=== PATIENT | male | born 1935 | race Caucasian/White ===

== ENCOUNTER 2021-11-18 23:56 | Inpatient (IN) | payer MEDICARE, SELFPAY ==
--- NOTE | ~2021-11-18 | XR_ITS ---
EXAMINATION: XR HIP, RIGHT CLINICAL INFORMATION: Fall COMPARISON: None TECHNIQUE: Two views of the right hip. Frontal view of the pelvis. FINDINGS: Osteopenia. Catheter in place over the pelvis. Vascular calcifications. No fracture or dislocation. The hips are appropriately aligned. Mild degenerative changes with subchondral sclerosis. The pelvic rim is intact. The sacroiliac joints and pubic symphysis are intact. Normal bowel gas pattern. XR/XR hip RT min 2V IMPRESSION: No acute fracture or malalignment. Mild degenerative changes of the hips.
--- NOTE | ~2021-11-18 | XR_ITS ---
EXAMINATION: XR FOOT, RIGHT CLINICAL INFORMATION: Foot wound COMPARISON: None TECHNIQUE: AP and lateral views of the right foot. FINDINGS: Osteopenia. No fracture or dislocation. Appropriate alignment. Diffuse soft tissue swelling. No osseous erosions are seen. XR/XR foot RT min 3V IMPRESSION: Diffuse soft tissue swelling without acute osseous abnormality. Osteopenia.
--- NOTE | ~2021-11-18 | CT_ITS ---
EXAMINATION: NONCONTRAST HEAD CT NONCONTRAST CERVICAL SPINE CT INDICATION INFORMATION: Fall. On Eliquis. COMPARISON: None TECHNIQUE: Separate noncontrast CT examinations of the head and cervical spine were performed. Coronal and sagittal images were created for each examination at the technologist workstation. This CT examination was performed using dose optimization techniques as appropriate, variously including the following: *Automated exposure control *Adjustment of mA and/or kV according to patient size (this includes techniques or standardized protocols for targeted exams where dose is matched to indication/reason for exam; i.e. extremities or head) *Use of iterative reconstruction technique DLP: 2300 mGy-cm FINDINGS: Motion limited evaluation. Head: There is no evidence of acute intracranial hemorrhage or territorial infarction. No abnormal mass effect or midline shift is seen. Lindsey to white matter differentiation is well preserved. No extra-axial fluid collections are identified. No hydrocephalus. Proportional prominence of the ventricles and sulcal spaces is consistent with moderate volume loss. Patchy periventricular and deep white matter hypoattenuation is consistent with moderate small vessel ischemic changes. No acute osseous or soft tissue abnormality. The mastoid air cells and visualized portions of the paranasal sinuses are well aerated. Cervical spine: There is anatomic alignment of the vertebral bodies and posterior elements. The atlantoaxial and atlantooccipital articulations are intact. Vertebral body heights are maintained. There is multilevel intervertebral disc space narrowing with endplate osteophyte formation and facet arthropathy. No evidence of acute fracture. No prevertebral soft tissue swelling. Visualized portions of the lung apices are unremarkable. The thyroid gland is unremarkable. CT/CT cervical spine wo con IMPRESSION: Motion limited study. 1. No acute intracranial finding. 2. No fracture or malalignment of the cervical spine. Moderate degenerative change.
--- NOTE | ~2021-11-18 | CT_ITS ---
EXAMINATION: CT CHEST WITHOUT CONTRAST CLINICAL INFORMATION: Fall COMPARISON: None TECHNIQUE: Multidetector volumetric CT imaging of the chest was done. Axial MIP volume rendering provided. Sagittal and coronal reformatted images were obtained. This CT examination was performed using dose optimization techniques as appropriate, variously including the following: *Automated exposure control *Adjustment of mA and/or kV according to patient size (this includes techniques or standardized protocols for targeted exams where dose is matched to indication/reason for exam; i.e. extremities or head) *Use of iterative reconstruction technique DLP: 516 mGy-cm FINDINGS: LUNGS: Central airways are patent. Dependent atelectasis bilaterally. Mild peripheral reticulation. No pneumothorax. MEDIASTINUM: Enlarged heart with coronary artery calcifications. Left chest wall pacer in place. No pericardial effusion. There is a prominent prevascular lymph node measuring 1.4 cm short axis. No additional lymphadenopathy. PLEURA: There is no pleural effusion. No pleural mass or thickening. AXILLA: No lymphadenopathy. UPPER ABDOMEN: Unremarkable. OSSEOUS STRUCTURES: No acute or suspicious osseous abnormality. Degenerative change throughout the spine. DISH. No rib fracture identified. The sternum is intact. CT/CT chest wo con IMPRESSION: No acute traumatic findings. No acute fractures are seen. Prominent heart. Dependent atelectasis. Peripheral reticulation could be chronic or associated with mild edema. Fleischner guidelines were followed.
[2021-11-19] VITALS (10 sets, daily range): BP systolic 100–180; BP diastolic 41–90; PULSE 60–97; RESP 12–24; TEMP 36.2–37; O2SAT 89–100; BMI 30.9
--- NOTE | 2021-11-19 00:15 | ECG_ITS ---
Test Reason : FALL Blood Pressure : / mmHG Vent. Rate : 086 BPM Atrial Rate : 086 BPM P-R Int : 176 ms QRS Dur : 162 ms QT Int : 472 ms P-R-T Axes : 072 -67 110 degrees QTc Int : 564 ms Atrial-sensed ventricular-paced rhythm with Premature supraventricular complexes Abnormal ECG No previous ECGs available Referred By: Tiara Adair Electronically Signed By:DELONTE BERGMAN
--- NOTE | 2021-11-19 00:17 | ED_ITS ---
HPI - Fall General Chief Complaint: Fall Stated Complaint: fall Time Seen by Provider: 11/19/21 00:13 Source: patient and EMS Mode of arrival: EMS Limitations: altered mental status History of Present Illness HPI Narrative: 86 yo male from local SNF hx of anemia, chronic back pain, PE on eliquis also saw plavix on his med list, HLD, chronic vieira, anemia was found out of bed tonight unwitnessed fall - staff told EMS he seems more confused. Patient reports leg pain but other than that denies complaints. He also pulled his chronic vieira out. Patient is DNR/DNI. MD complaint: fall Onset (ago): unknown Fall from: out of bed Fall witnessed: no Place fall occurred: [facility] Loss of consciousness: unsure Prolonged down time: unclear Symptoms prior to fall: other (unknown patient does not remember) Context: other (found on floor by staff) Location of injury: pelvis (R hip) and other (pulled his vieira out) Location of injury - extremities: right: lower leg Severity: moderate Quality: dull Associated symptoms (after fall): other (vieira pulled out, confused, R leg pain) Related Data Allergies Allergy/AdvReac Type Severity Reaction Status Date / Time sulfamethoxazole Allergy Unknown Unknown Verified 11/19/21 00:14 [From Bactrim] trimethoprim [From Bactrim] Allergy Unknown Unknown Verified 11/19/21 00:14 Review of Systems Review of Systems: ROS unable to be obtained due to altered mental status PMFSH Past Medical History Medical History Anemia Chronic indwelling Vieira catheter Pulmonary embolus Wound of foot Social History Social History (Updated 11/19/21 @ 00:18 by Tiara Adair DO) Patient Tobacco Use Status: Tobacco use Unknown Advance Directives: No Advance Directives Information Provided: Yes Physical Exam Vital Signs: Vital Signs: Last Vital Signs Temp 98.6 F 11/19/21 00:03 Pulse 69 11/19/21 02:49 Resp 14 11/19/21 02:49 BP 105/41 L 11/19/21 02:49 Pulse Ox 97 11/19/21 02:49 O2 Del Method 11/19/21 02:49 O2 Flow Rate 2 11/19/21 02:49 Oxygen Flow Rate 2 11/19/21 00:03 BMI result Body Mass Index 30.9 Appearance: Alert. Oriented X to self . No acute distress. Eyes: Pupils equal, round and reactive to light. ENT: Pharynx normal. Atraumatic Neck: Normal inspection. Neck supple. CVS: Normal heart rate and rhythm. Pulses normal. Respiratory: No respiratory distress. Breath sounds normal. Abdomen: Soft and nontender. : dried blood at meatus Skin: Skin warm and dry. Normal skin color. Normal skin turgor. Extremities: trace lower extremity edema, reports pain to R hip and R foot, foul draining wound from R foot with significant odor noted on heel with sloughing of skin noted Neuro: Oriented X self. No motor deficit. No sensory deficit. Course Course Course Narrative: vieira placed CT scans negative MDM - Fall MDM Narrative Medical decision making narrative: 86 yo male from local SNF hx of anemia, chronic back pain, PE on eliquis also saw plavix on his med list, HLD, chronic vieira, anemia here with c/o being found on floor by SNF staff at this time will need CT head/cspine/chest for trauma along with xray of hip and foot. Labs, cultures, his R foot is draining with very strong odor and purulence coming from it, will start on empiric antibiotics. Likely admit. Patient is DNR/DNI. Lab Data Result diagrams: 11/19/21 00:52 11/19/21 00:52 Labs: Lab Results 11/19/21 11/19/21 11/19/21 Range/Units 00:18 00:51 00:52 WBC 2.0 L (4.8-10.8) X10*3/uL RBC 3.04 L (4.60-5.80) X10*6/uL Hgb 8.6 L (14.0-18.0) g/dl Hct 28.1 L (42.0-52.0) % MCV 92.4 (80.0-98.0) fL MCH 28.3 (27.0-33.0) pg MCHC 30.6 L (31.0-36.0) g/dl RDW 15.2 (11.0-16.0) % Plt Count 310 (160-400) X10*3/uL MPV 8.7 L (9.4-12.4) fL Immature Gran % (Auto) 2.0 H (0.0-0.4) % Neut % (Auto) 90.0 H (45-73) % Lymph % (Auto) 4.0 L (20-40) % Sullivan % (Auto) 1.0 L (2-11) % Eos % (Auto) 2.5 (0-4) % Baso % (Auto) 0.5 (0-2) % Lymph # (Auto) 0.1 L (1.2-4.9) X10*3/uL Sullivan # (Auto) 0.0 L (0.1-1.2) X10*3/uL Eos # (Auto) 0.1 (0.0-0.4) X10*3/uL Baso # (Auto) 0.0 (0.0-0.2) X10*3/uL Abs Immat Gran (auto) 0.04 H (0.00-0.03) X10*3/uL Absolute Neuts (auto) 1.8 L (2.0-8.3) x10*3/uL Absolute Nucleated RBC 0.200 H (0.0-0.012) X10*3/uL Nucleated RBC % (auto) 10.0 H (0.0-0.2) /100WBC Smear Tech's Comments VERIFIED ESR (0-15) MM/HR PT 13.1 (10.0-13.1) SEC INR 1.3 H (0.9-1.1) APTT 23.7 L (24.1-38.0) SEC VBG pH (7.32-7.43) VBG pCO2 mmHg VBG pO2 mmHg VBG HCO3 (22-26) mmol/L VBG O2 Saturation % VBG Base Excess mmol/L Sodium (135-145) mmol/L Potassium (3.3-5.1) mmol/L Chloride (96-108) mmol/L Carbon Dioxide (22-29) mmol/L Anion Gap (12-20) BUN (9-16) mg/dL Creatinine (0.5-1.4) mg/dL Estim Creat Clear Calc Estimated GFR POC Glucose 142 H (60-115) mg/dL Random Glucose (60-115) mg/dL Lactic Acid (0.5-2.0) mmol/L Calcium (8.4-10.2) mg/dL Magnesium (1.6-2.6) mg/dL Total Bilirubin (0.0-1.0) mg/dL Direct Bilirubin (0.0-0.5) mg/dL AST (5-37) U/L ALT (0-40) U/L Alkaline Phosphatase (39-117) U/L Ammonia (13-55) umol/L Total Creatine Kinase (38-174) U/L Troponin I High Sens (<3.5-35.0) ng/L C-Reactive Protein (< or = 0.50) mg/dL Total Protein (6.5-8.0) g/dL Albumin (3.5-5.0) g/dL Lipase (8-78) U/L COVID-19 (GARRETT) (Negative) COVID-19 Clin Com 11/19/21 11/19/21 11/19/21 Range/Units 00:52 00:52 00:52 WBC (4.8-10.8) X10*3/uL RBC (4.60-5.80) X10*6/uL Hgb (14.0-18.0) g/dl Hct (42.0-52.0) % MCV (80.0-98.0) fL MCH (27.0-33.0) pg MCHC (31.0-36.0) g/dl RDW (11.0-16.0) % Plt Count (160-400) X10*3/uL MPV (9.4-12.4) fL Immature Gran % (Auto) (0.0-0.4) % Neut % (Auto) (45-73) % Lymph % (Auto) (20-40) % Sullivan % (Auto) (2-11) % Eos % (Auto) (0-4) % Baso % (Auto) (0-2) % Lymph # (Auto) (1.2-4.9) X10*3/uL Sullivan # (Auto) (0.1-1.2) X10*3/uL Eos # (Auto) (0.0-0.4) X10*3/uL Baso # (Auto) (0.0-0.2) X10*3/uL Abs Immat Gran (auto) (0.00-0.03) X10*3/uL Absolute Neuts (auto) (2.0-8.3) x10*3/uL Absolute Nucleated RBC (0.0-0.012) X10*3/uL Nucleated RBC % (auto) (0.0-0.2) /100WBC Smear Tech's Comments ESR (0-15) MM/HR PT (10.0-13.1) SEC INR (0.9-1.1) APTT (24.1-38.0) SEC VBG pH (7.32-7.43) VBG pCO2 mmHg VBG pO2 mmHg VBG HCO3 (22-26) mmol/L VBG O2 Saturation % VBG Base Excess mmol/L Sodium 143 (135-145) mmol/L Potassium 3.9 (3.3-5.1) mmol/L Chloride 109 H (96-108) mmol/L Carbon Dioxide 23 (22-29) mmol/L Anion Gap 15 (12-20) BUN 26 H (9-16) mg/dL Creatinine 1.43 H (0.5-1.4) mg/dL Estim Creat Clear Calc 50.1 Estimated GFR 47 POC Glucose (60-115) mg/dL Random Glucose 167 H (60-115) mg/dL Lactic Acid (0.5-2.0) mmol/L Calcium 8.6 (8.4-10.2) mg/dL Magnesium 2.4 (1.6-2.6) mg/dL Total Bilirubin 0.3 (0.0-1.0) mg/dL Direct Bilirubin 0.2 (0.0-0.5) mg/dL AST 5 (5-37) U/L ALT < 6 (0-40) U/L Alkaline Phosphatase 82 (39-117) U/L Ammonia 23 (13-55) umol/L Total Creatine Kinase 79 (38-174) U/L Troponin I High Sens (<3.5-35.0) ng/L C-Reactive Protein 1.74 H (< or = 0.50) mg/dL Total Protein 6.8 (6.5-8.0) g/dL Albumin 3.4 L (3.5-5.0) g/dL Lipase 12 (8-78) U/L COVID-19 (GARRETT) Negative (Negative) COVID-19 Clin Com See Note 11/19/21 11/19/21 11/19/21 Range/Units 00:52 00:52 00:52 WBC (4.8-10.8) X10*3/uL RBC (4.60-5.80) X10*6/uL Hgb (14.0-18.0) g/dl Hct (42.0-52.0) % MCV (80.0-98.0) fL MCH (27.0-33.0) pg MCHC (31.0-36.0) g/dl RDW (11.0-16.0) % Plt Count (160-400) X10*3/uL MPV (9.4-12.4) fL Immature Gran % (Auto) (0.0-0.4) % Neut % (Auto) (45-73) % Lymph % (Auto) (20-40) % Sullivan % (Auto) (2-11) % Eos % (Auto) (0-4) % Baso % (Auto) (0-2) % Lymph # (Auto) (1.2-4.9) X10*3/uL Sullivan # (Auto) (0.1-1.2) X10*3/uL Eos # (Auto) (0.0-0.4) X10*3/uL Baso # (Auto) (0.0-0.2) X10*3/uL Abs Immat Gran (auto) (0.00-0.03) X10*3/uL Absolute Neuts (auto) (2.0-8.3) x10*3/uL Absolute Nucleated RBC (0.0-0.012) X10*3/uL Nucleated RBC % (auto) (0.0-0.2) /100WBC Smear Tech's Comments ESR 67 H (0-15) MM/HR PT (10.0-13.1) SEC INR (0.9-1.1) APTT (24.1-38.0) SEC VBG pH (7.32-7.43) VBG pCO2 mmHg VBG pO2 mmHg VBG HCO3 (22-26) mmol/L VBG O2 Saturation % VBG Base Excess mmol/L Sodium (135-145) mmol/L Potassium (3.3-5.1) mmol/L Chloride (96-108) mmol/L Carbon Dioxide (22-29) mmol/L Anion Gap (12-20) BUN (9-16) mg/dL Creatinine (0.5-1.4) mg/dL Estim Creat Clear Calc Estimated GFR POC Glucose (60-115) mg/dL Random Glucose (60-115) mg/dL Lactic Acid 1.8 (0.5-2.0) mmol/L Calcium (8.4-10.2) mg/dL Magnesium (1.6-2.6) mg/dL Total Bilirubin (0.0-1.0) mg/dL Direct Bilirubin (0.0-0.5) mg/dL AST (5-37) U/L ALT (0-40) U/L Alkaline Phosphatase (39-117) U/L Ammonia (13-55) umol/L Total Creatine Kinase (38-174) U/L Troponin I High Sens 67.7 H (<3.5-35.0) ng/L C-Reactive Protein (< or = 0.50) mg/dL Total Protein (6.5-8.0) g/dL Albumin (3.5-5.0) g/dL Lipase (8-78) U/L COVID-19 (GARRETT) (Negative) COVID-19 Clin Com 11/19/21 11/19/21 Range/Units 01:02 03:02 WBC (4.8-10.8) X10*3/uL RBC (4.60-5.80) X10*6/uL Hgb (14.0-18.0) g/dl Hct (42.0-52.0) % MCV (80.0-98.0) fL MCH (27.0-33.0) pg MCHC (31.0-36.0) g/dl RDW (11.0-16.0) % Plt Count (160-400) X10*3/uL MPV (9.4-12.4) fL Immature Gran % (Auto) (0.0-0.4) % Neut % (Auto) (45-73) % Lymph % (Auto) (20-40) % Sullivan % (Auto) (2-11) % Eos % (Auto) (0-4) % Baso % (Auto) (0-2) % Lymph # (Auto) (1.2-4.9) X10*3/uL Sullivan # (Auto) (0.1-1.2) X10*3/uL Eos # (Auto) (0.0-0.4) X10*3/uL Baso # (Auto) (0.0-0.2) X10*3/uL Abs Immat Gran (auto) (0.00-0.03) X10*3/uL Absolute Neuts (auto) (2.0-8.3) x10*3/uL Absolute Nucleated RBC (0.0-0.012) X10*3/uL Nucleated RBC % (auto) (0.0-0.2) /100WBC Smear Tech's Comments ESR (0-15) MM/HR PT (10.0-13.1) SEC INR (0.9-1.1) APTT (24.1-38.0) SEC VBG pH 7.40 (7.32-7.43) VBG pCO2 38 mmHg VBG pO2 53 mmHg VBG HCO3 24 (22-26) mmol/L VBG O2 Saturation 81.0 % VBG Base Excess 0.1 mmol/L Sodium (135-145) mmol/L Potassium (3.3-5.1) mmol/L Chloride (96-108) mmol/L Carbon Dioxide (22-29) mmol/L Anion Gap (12-20) BUN (9-16) mg/dL Creatinine (0.5-1.4) mg/dL Estim Creat Clear Calc Estimated GFR POC Glucose (60-115) mg/dL Random Glucose (60-115) mg/dL Lactic Acid (0.5-2.0) mmol/L Calcium (8.4-10.2) mg/dL Magnesium (1.6-2.6) mg/dL Total Bilirubin (0.0-1.0) mg/dL Direct Bilirubin (0.0-0.5) mg/dL AST (5-37) U/L ALT (0-40) U/L Alkaline Phosphatase (39-117) U/L Ammonia (13-55) umol/L Total Creatine Kinase (38-174) U/L Troponin I High Sens 70.0 H (<3.5-35.0) ng/L C-Reactive Protein (< or = 0.50) mg/dL Total Protein (6.5-8.0) g/dL Albumin (3.5-5.0) g/dL Lipase (8-78) U/L COVID-19 (GARRETT) (Negative) COVID-19 Clin Com ECG Data Attestation: I personally reviewed and interpreted this ECG as follows: ECG interpretation date: 11/19/21 ECG interpretation time: 01:00 Interpretation: Rate: 86 Rhythm: continuous paced [place]: left wide QRS ST T wave : no CLARISSA qTC: prolonged prior studies: no priors, paced rhythm The study has been interpreted contemporaneously by me. . Discharge Plan Discharge Clinical Impression: Pancytopenia, Elevated troponin Fall Qualifiers: Encounter type: initial encounter Qualified Code(s): W19.XXXA - Unspecified fall, initial encounter Open wnd foot-complicated Qualifiers: Encounter type: initial encounter Laterality: right Qualified Code(s): S91.301A - Unspecified open wound, right foot, initial encounter Patient Disposition: Admitted As Inpatient
[2021-11-19 00:40] LABS: Glucose, Whole Blood 142 mg/dL (60-115)
[2021-11-19] MEDS: Acetaminophen 325 MG TABLET 650 MG PO (00:57)
[2021-11-19] MEDS: Piperacillin Sodium/Tazobactam 3.375 GM in 0.9 % Sodium Chloride 50 ML IV (00:57)
[2021-11-19] MEDS: Lidocaine HCl 2 % Urojet 10 ML JEL.PF.APP TOPICAL (00:58)
[2021-11-19 01:03] LABS: Basophils Percent Auto 0.5 % (0-2); Eosinophils Absolute Auto 0.1 X10*3/uL (0.0-0.4); Eosinophils Percent Auto 2.5 % (0-4); Hematocrit 28.1 % (42.0-52.0); Hemoglobin 8.6 g/dl (14.0-18.0); Imm Gran Abs Auto 0.04 X10*3/uL (0.00-0.03); Lymphocytes Absolute Auto 0.1 X10*3/uL (1.2-4.9); MANUAL DIFF FLAG SCAN; Mean Corpuscular HGB Conc 30.6 g/dl (31.0-36.0); Mean Corpuscular Hemoglobin 28.3 pg (27.0-33.0); Mean Corpuscular Volume 92.4 fL (80.0-98.0); Mean Platelet Volume 8.7 fL (9.4-12.4); Neutrophils Absolute Auto 1.8 x10*3/uL (2.0-8.3); Platelet Count 310 X10*3/uL (160-400); Red Blood Count 3.04 X10*6/uL (4.60-5.80); Red Cell Distribution Width 15.2 % (11.0-16.0); SCAN SMEAR FLAG 1
[2021-11-19 01:08] LABS: Venous Blood Gas Refer to POC result
[2021-11-19 01:10] LABS: VBG Base Excess 0.1 mmol/L; VBG HCO3 24 mmol/L (22-26); VBG pCO2 38 mmHg; VBG pO2 53 mmHg
[2021-11-19 01:11] LABS: Ammonia 23 umol/L (13-55)
[2021-11-19 01:15] LABS: Lactic Acid 1.8 mmol/L (0.5-2.0)
[2021-11-19 01:18] LABS: COVID-19 Test Negative (Negative)
[2021-11-19 01:20] LABS: Alanine Aminotransferase < 6 U/L (0-40); Albumin Level 3.4 g/dL (3.5-5.0); Alkaline Phosphatase 82 U/L (39-117); Anion Gap 15 (12-20); Aspartate Amino Transferase 5 U/L (5-37); Bilirubin Direct 0.2 mg/dL (0.0-0.5); Bilirubin Total 0.3 mg/dL (0.0-1.0); Blood Urea Nitrogen 26 mg/dL (9-16); C Reactive Protein 1.74 mg/dL (< or = 0.50); Calcium 8.6 mg/dL (8.4-10.2); Carbon Dioxide 23 mmol/L (22-29); Chloride 109 mmol/L (96-108); Creatinine Clr Calc Pharmacy 50.1; Estimated Glomerular Filt Rate 47; Glucose Random 167 mg/dL (60-115); Lipase 12 U/L (8-78); Magnesium 2.4 mg/dL (1.6-2.6); Potassium 3.9 mmol/L (3.3-5.1); Sodium 143 mmol/L (135-145); Total Protein 6.8 g/dL (6.5-8.0)
[2021-11-19 01:22] LABS: Troponin-I High Sensitivity 67.7 ng/L (<3.5-35.0)
[2021-11-19 01:53] LABS: SLIDE REVIEW VERIFIED
[2021-11-19 02:03] LABS: INTERNATIONAL NORM RATIO 1.3 (0.9-1.1); Partial Thromboplastin Time 23.7 SEC (24.1-38.0); Prothrombin Time 13.1 SEC (10.0-13.1)
[2021-11-19 02:20] LABS: Erythrocyte Sedimentation Rate 67 MM/HR (0-15)
--- NOTE | 2021-11-19 07:09 | PC.NURSE ---
RN gave report to Navdeep SHABAZZ and Malena SHABAZZ
--- NOTE | 2021-11-19 07:09 | PC.NURSE ---
Report received at 0700 from Dave, RNs
--- NOTE | 2021-11-19 09:47 | PC.NURSE ---
Pt. Merino catheter inserted by previous shift
--- NOTE | 2021-11-19 10:35 | PM.IMHP ---
History of Present Illness Date of Service: 11/19/21 Chief Complaint: AMS, hematuria, fall, open wound an 86 years old male with PMH of PE, chronic Merino, anemia among others who presents to the hospital after being found on the floor by SNF staff. The patient could not provide any meaningful history at time of presentation as his mentation was altered and very difficult to arouse. History was taken from emergency physician who reported that he was told by EMS staff the patient was confused mainly complaining of leg pain And he pulled his Merino out. in the emergency x-ray of the lower extremity was negative for any acute fracture. Brain image negative for any acute insults. He was found to have a right lower extremity ankle open wound with foul smell And purulent C. Admitted for further evaluation and treatment. Review of Systems Review of Systems: Yes Unobtainable due to mental status [facility] Medical History Anemia Chronic indwelling Merino catheter Pulmonary embolus Wound of foot Social History Patient Tobacco Use Status: Tobacco use Unknown Advance Directives: No Advance Directives Information Provided: Yes Meds Allergies Allergy/AdvReac Type Severity Reaction Status Date / Time sulfamethoxazole Allergy Unknown Unknown Verified 11/19/21 00:14 [From Bactrim] trimethoprim [From Bactrim] Allergy Unknown Unknown Verified 11/19/21 00:14 Active Medications: Current Medications Pharmacy Consult (Consult Rx Perform Med Rec) 1 each MISCELLANE ONCE PRN PRN Reason: Consult order Home Medications Medication Instructions Recorded Confirmed Last Taken Type acetaminophen 325 mg tablet 650 mg PO Q4H PRN Pain (Scale 11/19/21 11/19/21 Unknown History Score 1-3) apixaban 2.5 mg tablet 2.5 mg PO BID 11/19/21 11/19/21 Unknown History ascorbic acid (vitamin C) 500 mg 500 mg PO TID 11/19/21 11/19/21 Unknown History tablet aspirin 81 mg tablet,delayed 81 mg PO DAILY 11/19/21 11/19/21 Unknown History release bicalutamide 50 mg tablet 50 mg PO DAILY 11/19/21 11/19/21 Unknown History carbamazepine 200 mg tablet 200 mg PO BID 11/19/21 11/19/21 Unknown History carbidopa ER 25 mg-levodopa 100 mg 1 tab PO TID 11/19/21 11/19/21 Unknown History tablet,extended release carvedilol 6.25 mg tablet 6.25 mg PO BID 11/19/21 11/19/21 Unknown History cholecalciferol (vitamin D3) 125 125 mcg PO DAILY 11/19/21 11/19/21 Unknown History mcg (5,000 unit) tablet clonidine HCl 0.1 mg tablet 0.1 mg PO BID 11/19/21 11/19/21 Unknown History clopidogrel 75 mg tablet 75 mg PO DAILY 11/19/21 11/19/21 Unknown History cyanocobalamin (vitamin B-12) 1,000 mcg PO DAILY 11/19/21 11/19/21 Unknown History 1,000 mcg tablet docusate sodium 100 mg tablet 100 mg PO BID 11/19/21 11/19/21 Unknown History donepezil 10 mg tablet 10 mg PO BEDTIME 11/19/21 11/19/21 Unknown History doxycycline hyclate 100 mg tablet 100 mg PO BID 11/19/21 11/19/21 Unknown History ferrous sulfate 325 mg (65 mg 325 mg PO TID 11/19/21 11/19/21 Unknown History iron) tablet gabapentin 300 mg capsule 300 mg PO TID 11/19/21 11/19/21 Unknown History magnesium hydroxide 400 mg/5 mL 30 ml PO BEDTIME PRN Constipation 11/19/21 11/19/21 Unknown History oral suspension (Milk of Magnesia) methenamine hippurate 1 gram tablet 1 g PO BID 11/19/21 11/19/21 Unknown History omeprazole 20 mg tablet,delayed 20 mg PO DAILY@0630 11/19/21 11/19/21 Unknown History release paroxetine HCl 40 mg tablet 40 mg PO DAILY 11/19/21 11/19/21 Unknown History polyethylene glycol 3350 17 gram 17 g PO BID PRN Constipation 11/19/21 11/19/21 Unknown History oral powder packet (Miralax) polyethylene glycol 3350 17 gram 17 g PO DAILY 11/19/21 11/19/21 Unknown History oral powder packet (Miralax) rosuvastatin 10 mg tablet 10 mg PO DAILY 11/19/21 11/19/21 Unknown History Physical Exam Vital Signs and Narrative: Vital Signs: Last Vital Signs Temp 97.8 F 11/19/21 08:00 Pulse 61 11/19/21 10:00 Resp 14 11/19/21 10:00 BP 101/51 L 11/19/21 10:00 Pulse Ox 100 11/19/21 10:00 O2 Del Method 11/19/21 10:00 O2 Flow Rate 2 11/19/21 10:00 Oxygen Flow Rate 2 11/19/21 00:03 BMI result Body Mass Index 30.9 Const: Other: Constitutional : altered mentation, difficult to arouse, not in distress Neck : Normal inspection, Supple Cardiovascular : RRR, no JVP, trace bilateral lower extremity edema Respiratory : fair bilateral air entry, no crackles, wheezes or rhonchi Gastrointestinal: soft, lax, Normal bowel sounds, Non tender Skin : Warm, Dry, follow old drainage wound on the right ankle with fall others and sloughing skin Likely pressure ulcer grade 2 Neurological : altered mentation, difficult to arouse, difficult to assess for any focal deficit at this stage but has reactive pupils GCS of 9-10 Results Labs CBC and Chem 7: 11/19/21 00:52 11/19/21 00:52 Labs: Laboratory Results - last 24 hr 11/19/21 11/19/21 11/19/21 00:18 00:51 00:52 MCV 92.4 MCH 28.3 MCHC 30.6 L RDW 15.2 Plt Count 310 MPV 8.7 L Immature Gran % (Auto) 2.0 H Neut % (Auto) 90.0 H Lymph % (Auto) 4.0 L Wright % (Auto) 1.0 L Eos % (Auto) 2.5 Baso % (Auto) 0.5 Lymph # (Auto) 0.1 L Wright # (Auto) 0.0 L Eos # (Auto) 0.1 Baso # (Auto) 0.0 Abs Immat Gran (auto) 0.04 H Absolute Neuts (auto) 1.8 L Absolute Nucleated RBC 0.200 H Nucleated RBC % (auto) 10.0 H Smear Tech's Comments VERIFIED ESR PT 13.1 INR 1.3 H APTT 23.7 L VBG pH VBG pCO2 VBG pO2 VBG HCO3 VBG O2 Saturation VBG Base Excess Anion Gap Estim Creat Clear Calc Estimated GFR POC Glucose 142 H Random Glucose Lactic Acid Calcium Magnesium Total Bilirubin Direct Bilirubin AST ALT Alkaline Phosphatase Ammonia Total Creatine Kinase Troponin I High Sens C-Reactive Protein Total Protein Albumin Lipase COVID-19 ([facility]) COVID-19 Clin Com 11/19/21 11/19/21 11/19/21 00:52 00:52 00:52 MCV MCH MCHC RDW Plt Count MPV Immature Gran % (Auto) Neut % (Auto) Lymph % (Auto) Wright % (Auto) Eos % (Auto) Baso % (Auto) Lymph # (Auto) Wright # (Auto) Eos # (Auto) Baso # (Auto) Abs Immat Gran (auto) Absolute Neuts (auto) Absolute Nucleated RBC Nucleated RBC % (auto) Smear Tech's Comments ESR PT INR APTT VBG pH VBG pCO2 VBG pO2 VBG HCO3 VBG O2 Saturation VBG Base Excess Anion Gap 15 Estim Creat Clear Calc 50.1 Estimated GFR 47 POC Glucose Random Glucose 167 H Lactic Acid Calcium 8.6 Magnesium 2.4 Total Bilirubin 0.3 Direct Bilirubin 0.2 AST 5 ALT < 6 Alkaline Phosphatase 82 Ammonia 23 Total Creatine Kinase 79 Troponin I High Sens C-Reactive Protein 1.74 H Total Protein 6.8 Albumin 3.4 L Lipase 12 COVID-19 ([facility]) Negative COVID-19 Clin Com See Note 11/19/21 11/19/21 11/19/21 00:52 00:52 00:52 MCV MCH MCHC RDW Plt Count MPV Immature Gran % (Auto) Neut % (Auto) Lymph % (Auto) Wright % (Auto) Eos % (Auto) Baso % (Auto) Lymph # (Auto) Wright # (Auto) Eos # (Auto) Baso # (Auto) Abs Immat Gran (auto) Absolute Neuts (auto) Absolute Nucleated RBC Nucleated RBC % (auto) Smear Tech's Comments ESR 67 H PT INR APTT VBG pH VBG pCO2 VBG pO2 VBG HCO3 VBG O2 Saturation VBG Base Excess Anion Gap Estim Creat Clear Calc Estimated GFR POC Glucose Random Glucose Lactic Acid 1.8 Calcium Magnesium Total Bilirubin Direct Bilirubin AST ALT Alkaline Phosphatase Ammonia Total Creatine Kinase Troponin I High Sens 67.7 H C-Reactive Protein Total Protein Albumin Lipase COVID-19 ([facility]) COVID-19 Clin Com 11/19/21 11/19/21 01:02 03:02 MCV MCH MCHC RDW Plt Count MPV Immature Gran % (Auto) Neut % (Auto) Lymph % (Auto) Wright % (Auto) Eos % (Auto) Baso % (Auto) Lymph # (Auto) Wright # (Auto) Eos # (Auto) Baso # (Auto) Abs Immat Gran (auto) Absolute Neuts (auto) Absolute Nucleated RBC Nucleated RBC % (auto) Smear Tech's Comments ESR PT INR APTT VBG pH 7.40 VBG pCO2 38 VBG pO2 53 VBG HCO3 24 VBG O2 Saturation 81.0 VBG Base Excess 0.1 Anion Gap Estim Creat Clear Calc Estimated GFR POC Glucose Random Glucose Lactic Acid Calcium Magnesium Total Bilirubin Direct Bilirubin AST ALT Alkaline Phosphatase Ammonia Total Creatine Kinase Troponin I High Sens 70.0 H C-Reactive Protein Total Protein Albumin Lipase COVID-19 ([facility]) COVID-19 Clin Com Imaging Radiologist's Impressions: Impressions Foot X-Ray 11/19/21 01:43 IMPRESSION: Diffuse soft tissue swelling without acute osseous abnormality. Osteopenia. Hip X-Ray 11/19/21 01:43 IMPRESSION: No acute fracture or malalignment. Mild degenerative changes of the hips. Cervical Spine CT 11/19/21 02:00 IMPRESSION: Motion limited study. 1. No acute intracranial finding. 2. No fracture or malalignment of the cervical spine. Moderate degenerative change. Head CT 11/19/21 02:00 IMPRESSION: Motion limited study. 1. No acute intracranial finding. 2. No fracture or malalignment of the cervical spine. Moderate degenerative change. Chest CT 11/19/21 02:01 IMPRESSION: No acute traumatic findings. No acute fractures are seen. Prominent heart. Dependent atelectasis. Peripheral reticulation could be chronic or associated with mild edema. Fleischner guidelines were followed. Assessment and Plan (1) Fall: Qualifiers: Encounter type: initial encounter Qualified Code(s): W19.XXXA - Unspecified fall, initial encounter Status: Acute (2) Pancytopenia: Status: Acute (3) Pressure ulcer of foot, stage 2: Status: Acute (4) Toxic metabolic encephalopathy: Status: Acute (5) Hematuria: Status: Acute Plan an 86 years old male with PMH of PE, chronic Merino, anemia among others who presents to the hospital after being found on the floor by SNF staff. toxic metabolic encephalopathy Seems to be secondary to infection, wound VS UTI Broad-spectrum antibiotics for now Recurrent reorientation Pressure ulcer stage II Partial-thickness loss Get surgical evaluation for any debridement needed XR did not show any evidence of osteomyelitis To treat with antibiotics Hematuria Traumatic after removing his chronic Merino catheter Keep Merino catheter in place for now Hold ASA, Plavix and Eliquis To use CBI if needed possible urinary tract infection, pending urine culture Leukopenia, anemia Unclear baseline Could be secondary to infection Will try to get old blood work and monitor CBC Parkinson continue home medications For rest of medical problems I am waiting papers from facility, will restart some of his DVT PPX SCDs The patient will need 2 overnight hospital stay for evaluation of altered mentation and treatment of infection to prevent possible decompensation in to sepsis. Quality Stroke Does the patient have a stroke diagnosis?: No VTE Prior VTE?: No VTE Risk Level:: Medical - moderate - high VTE Device Contraindication: Treatment Not Indicated VTE Drug Contraindication: N/A - Med Ordered
[2021-11-19 10:58] LABS: Appearance Urine TURBID; Color Urine BROWN; Glucose Urine UA NEG (NEG); Leukocyte Esterase Urine 2+ (NEG); Nitrite Urine POS (NEG); Specific Gravity - Urine >= 1.030 (1.005-1.025); UACC Culture Trigger YES; Urine Blood 3+ (NEG); Urine Ketones 5 MG/DL (NEG); Urine Protein 3+ MG/DL (NEG-TRACE)
[2021-11-19 11:08] LABS: Amorphous Sediment Urine 4+ /LPF; RBC Urine TNTC /HPF (0); WBC Urine TNTC /HPF (0-4)
--- NOTE | 2021-11-19 11:46 | HE.PHANOTE ---
Completed med rec using shelter med list
[2021-11-19] MEDS: Dextrose 5 % and 0.9 % NaCl 1,000 ML 100 ML IVCONT (12:17)
[2021-11-19] MEDS: ceFAZolin Sodium/Dextrose,Iso 2 GM/50 ML PIGGYBACK IV ×2 (12:18→19:07)
--- NOTE | 2021-11-19 12:24 | PC.NURSE ---
this nurse took report on the patient at 11am, vieira cath patient/draining-hematuria noted, air sampling and monitoring paced 60s, vss, ivf started first abx hung per order, pt lungs have rhonchi upper and diminished throughout, rt heel open to air, call mccarthy within reach, will continue to monitor.
--- NOTE | 2021-11-19 12:52 | PC.NURSE ---
tyra fan running per order
--- NOTE | 2021-11-19 14:01 | PC.NURSE ---
critical labs given to this nurse by ED Dr. Washington Cates was notified via tiger text. Pt currently on vanco and other abx.
[2021-11-19] MEDS: Carbidopa/Levodopa CR 25/100 TABLET.ER 1 TAB PO (16:28)
[2021-11-19] MEDS: 0.9 % Sodium Chloride Flush 3 ML SYRINGE IVFLUSH (16:28)
--- NOTE | 2021-11-19 16:29 | PC.NURSE ---
Resting in bed. PO med given whole with water. VSS. Pt repositioned in the bed.
--- NOTE | 2021-11-19 18:53 | PC.NURSE ---
Pt c/o pain at side noticed that there was a piece of broken catheter protruding from patient's penis along side existing newly placed catheter. notified as well as urologist and who took report from . This RN instructed to deflate baloon on new catheter to remove old catheter piece. This was sucessful and old piece of catheter was removed. notified of removal of the old piece of catheter removal. Pt reporting that he feels some relief.
--- NOTE | 2021-11-19 19:34 | PC.NURSE ---
report received from MELE Guy. pt is alert and oriented. resting in bed. report penile pain. pt on continuos cardiac monitoring.
[2021-11-19 21:09] LABS: Glucose, Whole Blood 150 mg/dL (60-115)
[2021-11-19] MEDS: carvediloL 6.25 MG TABLET PO (21:19)
[2021-11-19] MEDS: Gabapentin 100 MG CAPSULE PO (21:19)
[2021-11-19] MEDS: carBAMazepine 200 MG TABLET PO (21:21)
[2021-11-19] MEDS: Docusate Sodium 100 MG CAPSULE PO (21:21)
[2021-11-19] MEDS: Donepezil HCl 10 MG TABLET PO (21:21)
--- NOTE | 2021-11-19 21:49 | PHA.PROG ---
Admission Date/Time: November 19, 2021 10:33 Indication: Weight in k.5 kg Adjusted body weight in Kg: [place] body weight in Kg: Obesity Dosing Indication % IBW: Serum Creatinine - Last 168 Hours 11/19/21 00:52 Creatinine 1.43 H Estimated CrCl and GFR - Last 168 Hours 11/19/21 00:52 Estim Creat Clear Calc 50.1 Estimated GFR 47 Vancomycin Loading Dose: 2 gm Current Vancomycin Dosing Regimen: 1250 q24h Vancomycin Monitoring using AUC goal of 400 - 600 range with trough as surrogate marker: Date and Time for next Vancomycin Level to be drawn: 11/21/21@2100 Pharmacist Comments on Vancomycin Plan: expected random auc ~440 trough ~14 Vancomycin dosing will take advantage of Fastly as a clinical decision support tool that uses Bayesian modeling to calculate individual patient's pharmacokinetic parameters and forecast the patient's drug concentration time course with the target goal AUC 24 range of 400 - 600 mg/L/hr.
--- NOTE | 2021-11-20 | ECG_ITS ---
Test Reason : FALL Blood Pressure : / mmHG Vent. Rate : 072 BPM Atrial Rate : 020 BPM P-R Int : 210 ms QRS Dur : 182 ms QT Int : 504 ms P-R-T Axes : -85 -66 122 degrees QTc Int : 551 ms AV dual-paced rhythm with prolonged AV conduction with premature ventricular or aberrantly conducted complexes Abnormal ECG When compared with ECG of 19-NOV-2021 00:47, Vent. rate has decreased BY 14 BPM Referred By: Ivett Delarosa Electronically Signed By:DELONTE BERGMAN
[2021-11-20 00:20] VITALS: BP 117/55; PULSE 59; RESP 16; TEMP 37.2; O2SAT 94
--- NOTE | 2021-11-20 04:03 | PC.NURSE ---
PATIENT ASK FOR THE BEDPAN TO HAVE A BOWEL MOVEMENT BUT DID NOT DO ANYTHING .
[2021-11-20] MEDS: ceFAZolin Sodium/Dextrose,Iso 2 GM/50 ML PIGGYBACK IV ×2 (04:13→22:50)
--- NOTE | 2021-11-20 04:43 | PC.NURSE ---
PATIENT BECAME VERY RESTLESS ,WANTED TO LEAVE ,TAKING EVERYTHING OFF ,RN AWARE PATIENT REFUSED VITALS TO BE TAKEN .
[2021-11-20] MEDS: Haloperidol Lactate 5 MG/ML VIAL IVPUSH (05:01)
--- NOTE | 2021-11-20 05:02 | PC.NURSE ---
Pt A+O to self, yelling out, trying to get out of bed, pulling off monitor leads/O2 probe and blood pressure cuff, 5mg Haldol given per MD order.
--- NOTE | 2021-11-20 06:09 | PC.NURSE ---
patient vieira cath bag was empty at 6am ,[place] aware bladder scan was done by this pct ,patient vieira seem very bloody .
--- NOTE | 2021-11-20 06:20 | PM.EVENT ---
Event Note Date of Service: 11/20/21 Event Note: Patient very presses of towards staff, restless, keeps getting out of bed and wandering around the unit, received 5 mg of IV Haldol with improvement in his status
--- NOTE | 2021-11-20 06:20 | PC.NURSE ---
Pt with known hematuria, vieira bag emptied last night at 22:00, now only approx 50ml of hematuria in vieira bag, bladder scan revealed approx 240 ml urine in bladder, Hospitalist made aware and advised this RN to monitor.
--- NOTE | 2021-11-20 06:27 | PC.NURSE ---
BLADDER SCAN AMOUNT WAS 254 ,RN AWARE .
[2021-11-20 07:38] LABS: Glucose, Whole Blood 173 mg/dL (60-115)
--- NOTE | 2021-11-20 08:14 | P.CONGS_ITS ---
History of Present Illness Consult details Consult date: 11/20/21 Requesting physician: Ivett Delarosa Narrative: 86-year-old male patient presented to the emergency department from a SNF after being found on the floor by staff. He is uncertain if he passed out, struck his head or any other associated injuries. He complains of some pain in the right leg and was found to have an open wound with foul-smelling discharge from the right heel. He is uncertain how long the ulceration is been present or of any previous treatments provided. Workup in the emergency department was negative for fractures and no intracerebral trauma is identified. Surgical consultation was requested for wound management. Patient's current medications include Sinemet CR and Plavix. Review of Systems Review of Systems: Yes Unobtainable due to mental status Neurologic: Reports confusion Psychiatric: Psychiatric: Reports confusion PMFSH Past Medical History Medical History Anemia Chronic indwelling Merino catheter Pulmonary embolus Wound of foot Social History Social History Patient Tobacco Use Status: Tobacco use Unknown Advance Directives: No Advance Directives Information Provided: Yes Meds Allergies Allergy/AdvReac Type Severity Reaction Status Date / Time sulfamethoxazole Allergy Unknown Unknown Verified 11/19/21 00:14 [From Bactrim] trimethoprim [From Bactrim] Allergy Unknown Unknown Verified 11/19/21 00:14 Active Medications: Current Medications Acetaminophen (Acetaminophen 325 Mg Tablet) 650 mg PO Q6H PRN PRN Reason: Pain, Mild (Pain Scale 1-3) Bicalutamide (Bicalutamide 50 Mg Tablet) 50 mg PO DAILY [facility] Carbamazepine (Carbamazepine 200 Mg Tablet) 200 mg PO BID [facility] Last Admin: 11/19/21 21:21 Dose: 200 mg Carbidopa/Levodopa (Carbidopa/Levodopa Cr 25/100 Tablet.Er) 1 tab PO TID [facility] Last Admin: 11/19/21 21:21 Dose: Not Given Carvedilol (Carvedilol 6.25 Mg Tablet) 6.25 mg PO BID [facility]; Protocol Last Admin: 11/19/21 21:19 Dose: 6.25 mg Docusate Sodium (Docusate Sodium 100 Mg Capsule) 100 mg PO BID [facility] Last Admin: 11/19/21 21:21 Dose: 100 mg Donepezil HCl (Donepezil Hcl 10 Mg Tablet) 10 mg PO BEDTIME [facility] Last Admin: 11/19/21 21:21 Dose: 10 mg Gabapentin (Gabapentin 100 Mg Capsule) 100 mg PO BID [facility] Last Admin: 11/19/21 21:19 Dose: 100 mg Vancomycin HCl 1,250 mg/ (Sodium Chloride) 250 mls @ 166.667 mls/hr IV Q24H [facility] Cefazolin Sodium/Dextrose (Ancef) 2 gm in 50 mls @ 100 mls/hr IV Q8H [facility] Last Admin: 11/20/21 04:13 Dose: 100 mls/hr Omeprazole (Omeprazole 20 Mg Capsule.Dr) 20 mg PO DAILY@0630 [facility] Last Admin: 11/20/21 06:11 Dose: Not Given Ondansetron HCl (Ondansetron Hcl 4 Mg/2 Ml Vial) 4 mg IVPUSH Q8H PRN PRN Reason: Nausea and Vomiting Paroxetine HCl (Paroxetine Hcl 40 Mg Tablet) 40 mg PO DAILY [facility] Pharmacy Consult (Consult Rx Perform Med Rec) 1 each MISCELLANE ONCE PRN PRN Reason: Consult order Pharmacy Consult (Consult Rx Vancomycin Dosing) 1 each MISCELLANE DAILY PRN PRN Reason: Consult order Polyethylene Glycol (Polyethylene Glycol 3350 17 Gm Powd.Pack) 17 gm PO DAILY [facility] Sodium Chloride (0.9 % Sodium Chloride Flush 3 Ml Syringe) 3 ml IVFLUSH QSHIFT [facility] Last Admin: 11/20/21 00:07 Dose: Not Given Home Medications Medication Instructions Recorded Confirmed Last Taken Type acetaminophen 325 mg tablet 650 mg PO Q4H PRN Pain (Scale 11/19/21 11/19/21 Unknown History Score 1-3) apixaban 2.5 mg tablet 2.5 mg PO BID 11/19/21 11/19/21 Unknown History ascorbic acid (vitamin C) 500 mg 500 mg PO TID 11/19/21 11/19/21 Unknown History tablet aspirin 81 mg tablet,delayed 81 mg PO DAILY 11/19/21 11/19/21 Unknown History release bicalutamide 50 mg tablet 50 mg PO DAILY 11/19/21 11/19/21 Unknown History carbamazepine 200 mg tablet 200 mg PO BID 11/19/21 11/19/21 Unknown History carbidopa ER 25 mg-levodopa 100 mg 1 tab PO TID 11/19/21 11/19/21 Unknown History tablet,extended release carvedilol 6.25 mg tablet 6.25 mg PO BID 11/19/21 11/19/21 Unknown History cholecalciferol (vitamin D3) 125 125 mcg PO DAILY 11/19/21 11/19/21 Unknown History mcg (5,000 unit) tablet clonidine HCl 0.1 mg tablet 0.1 mg PO BID 11/19/21 11/19/21 Unknown History clopidogrel 75 mg tablet 75 mg PO DAILY 11/19/21 11/19/21 Unknown History cyanocobalamin (vitamin B-12) 1,000 mcg PO DAILY 11/19/21 11/19/21 Unknown History 1,000 mcg tablet docusate sodium 100 mg tablet 100 mg PO BID 11/19/21 11/19/21 Unknown History donepezil 10 mg tablet 10 mg PO BEDTIME 11/19/21 11/19/21 Unknown History doxycycline hyclate 100 mg tablet 100 mg PO BID 11/19/21 11/19/21 Unknown History ferrous sulfate 325 mg (65 mg 325 mg PO TID 11/19/21 11/19/21 Unknown History iron) tablet gabapentin 300 mg capsule 300 mg PO TID 11/19/21 11/19/21 Unknown History magnesium hydroxide 400 mg/5 mL 30 ml PO BEDTIME PRN Constipation 11/19/21 11/19/21 Unknown History oral suspension (Milk of Magnesia) methenamine hippurate 1 gram tablet 1 g PO BID 11/19/21 11/19/21 Unknown History omeprazole 20 mg tablet,delayed 20 mg PO DAILY@0630 11/19/21 11/19/21 Unknown History release paroxetine HCl 40 mg tablet 40 mg PO DAILY 11/19/21 11/19/21 Unknown History polyethylene glycol 3350 17 gram 17 g PO BID PRN Constipation 11/19/21 11/19/21 Unknown History oral powder packet (Miralax) polyethylene glycol 3350 17 gram 17 g PO DAILY 11/19/21 11/19/21 Unknown History oral powder packet (Miralax) rosuvastatin 10 mg tablet 10 mg PO DAILY 11/19/21 11/19/21 Unknown History Physical Exam Vital Signs: Vital Signs: Last Vital Signs Temp 98.9 F 11/20/21 00:20 Pulse 59 11/20/21 00:20 Resp 16 11/20/21 00:20 BP 117/55 L 11/20/21 00:20 Pulse Ox 94 11/20/21 00:20 O2 Del Method 11/20/21 00:20 O2 Flow Rate 2 11/20/21 00:20 Oxygen Flow Rate 2 11/19/21 00:03 BMI result Body Mass Index 30.9 Const: General: comfortable, no acute distress and confusion Nutritional Appearance: well nourished Orientation/consciousness: confusion Limitations: altered mental status HEENT: Head: Yes normocephalic and Yes atraumatic Ears: hearing grossly normal bilaterally Resp: Effort & Inspection: normal respiratory effort, no audible wheezes, no cough and no respiratory distress GI: Inspection: Yes normal to inspection Skin: Other: Multiple skin abrasions especially on lower extremities, possibly from previous falls Neuro: General: confusion Extrem: Other: Right foot with a heel ulceration over the Achilles tendon which is currently dry without any purulence discharge. There is an overlying eschar which appears to be attached to the Achilles tendon. There is mild edema in the surrounding skin but no evidence of abscess this time. No foul-smelling discharge is noted. Desquamated skin was debrided and dry sterile dressings applied. Ankle/foot/toe images: 1. Site of ulceration right posterior heel over Achilles tendon Results Labs Result diagrams: 11/19/21 00:52 11/19/21 00:52 Labs: Abnormal lab results 11/19/21 11/19/21 11/20/21 Range/Units 10:33 20:17 07:25 POC Glucose 150 H 173 H (60-115) mg/dL Urine Color BROWN A Ur Specific [place] >= 1.030 H (1.005-1.025) Urine Protein 3+ H (NEG-TRACE) MG/DL Urine Blood 3+ H (NEG) Urine Nitrite POS H (NEG) Ur Leukocyte Esterase 2+ H (NEG) Urine RBC TNTC H (0) /HPF Urine WBC TNTC H (0-4) /HPF Urine 11/19/21 Range/Units 10:33 Urine Color BROWN A Urine Appearance TURBID Urine pH 5.0 (5.0-8.0) Ur Specific [place] >= 1.030 H (1.005-1.025) Urine Protein 3+ H (NEG-TRACE) MG/DL Urine Glucose (UA) NEG (NEG) MG/DL All other labs normal. Assessment and Plan (1) Pressure ulcer of foot, stage 2: Status: Acute Plan Patient presents with a right heel ulcer which appears chronic with an underlyi ng eschar directly over the Achilles tendon. Patient noted to have foul- smelling discharge in the emergency department on initial evaluation. Currently the wound is dry. Some of the desquamated skin was debrided (2 x 2 cm). Recommend applying a protective dressing to pad the wound and keep pressure off. Patient may have some underlying vascular disease (no outside records are available at the time of this evaluation). Agree with current antibiotics. Will monitor for possible need for further debridement during this hospitalization. Upon discharge patient may benefit from wound care referral. Procedures Date of Service Date of Service: 11/20/21
[2021-11-20 08:17] VITALS: BP 134/61; PULSE 88; RESP 20; O2SAT 94
[2021-11-20] MEDS: carBAMazepine 200 MG TABLET PO ×2 (10:05→22:50)
[2021-11-20] MEDS: Carbidopa/Levodopa CR 25/100 TABLET.ER 1 TAB PO ×3 (10:06→22:50)
[2021-11-20] MEDS: Gabapentin 100 MG CAPSULE PO ×2 (10:06→22:50)
[2021-11-20] MEDS: Bicalutamide 50 MG TABLET PO (10:06)
[2021-11-20] MEDS: Docusate Sodium 100 MG CAPSULE PO ×2 (10:06→22:51)
[2021-11-20] MEDS: polyethylene glycoL 3350 17 GM POWD.PACK PO (10:06)
[2021-11-20] MEDS: PARoxetine HCL 40 MG TABLET PO (10:06)
[2021-11-20] MEDS: carvediloL 6.25 MG TABLET PO ×2 (10:06→22:50)
--- NOTE | 2021-11-20 12:22 | P.PNIM_ITS ---
Subjective Subjective Date of Service: 11/20/21 Interval History: the patient was seen and evaluated this morning Laying in bed, More alert and interactive Denies any fever, chills or shortness of breath not sure how he ended up in the hospital No reported other overnight events. Systemic review: No fever, chills or weakness No chest pain, palpitation No shortness of breath or coughing No abdominal pain, nausea or vomiting Merino catheter at place Right lower extremity heel wound< not painful Physical Exam Vital Signs: Vital Signs: Last Vital Signs Temp 98.9 F 11/20/21 00:20 Pulse 88 11/20/21 08:17 Resp 20 11/20/21 08:17 BP 134/61 11/20/21 08:17 Pulse Ox 94 11/20/21 08:17 O2 Del Method 11/20/21 08:17 O2 Flow Rate 1 11/20/21 08:17 Oxygen Flow Rate 2 11/19/21 00:03 BMI result Body Mass Index 30.9 Const: Other: Constitutional : alert< interactive, not in distress Neck : Normal inspection, Supple Cardiovascular : RRR, no JVP, trace bilateral lower extremity edema Respiratory : fair bilateral air entry, no crackles, wheezes or rhonchi Gastrointestinal: soft, lax, Normal bowel sounds, Non tender Skin : Warm, Dry, follow old drainage wound on the right ankle with fall others and sloughing skin Likely pressure ulcer grade 2 Neurological : alert< interactive< no focal deficit noticed< mildly confused but oriented to self and time Objective Data Active Medications Acetaminophen (Acetaminophen 325 Mg Tablet) 650 mg PO Q6H PRN PRN Reason: Pain, Mild (Pain Scale 1-3) Bicalutamide (Bicalutamide 50 Mg Tablet) 50 mg PO DAILY [facility] Last Admin: 11/20/21 10:06 Dose: 50 mg Documented By: JESSICA Carbamazepine (Carbamazepine 200 Mg Tablet) 200 mg PO BID [facility] Last Admin: 11/20/21 10:05 Dose: 200 mg Documented By: JESSICA Carbidopa/Levodopa (Carbidopa/Levodopa Cr 25/100 Tablet.Er) 1 tab PO TID [facility] Last Admin: 11/20/21 10:06 Dose: 1 tab Documented By: JESSICA Carvedilol (Carvedilol 6.25 Mg Tablet) 6.25 mg PO BID [facility]; Protocol Last Admin: 11/20/21 10:06 Dose: 6.25 mg Documented By: JESSICA Docusate Sodium (Docusate Sodium 100 Mg Capsule) 100 mg PO BID [facility] Last Admin: 11/20/21 10:06 Dose: 100 mg Documented By: JESSICA Donepezil HCl (Donepezil Hcl 10 Mg Tablet) 10 mg PO BEDTIME [facility] Last Admin: 11/19/21 21:21 Dose: 10 mg Documented By: CHRISTIAN Gabapentin (Gabapentin 100 Mg Capsule) 100 mg PO BID [facility] Last Admin: 11/20/21 10:06 Dose: 100 mg Documented By: JESSICA Vancomycin HCl 1,250 mg/ (Sodium Chloride) 250 mls @ 166.667 mls/hr IV Q24H [facility] Cefazolin Sodium/Dextrose (Ancef) 2 gm in 50 mls @ 100 mls/hr IV Q8H [facility] Last Admin: 11/20/21 04:13 Dose: 100 mls/hr Documented By: CHRISITAN Omeprazole (Omeprazole 20 Mg Capsule.Dr) 20 mg PO DAILY@0630 [facility] Last Admin: 11/20/21 06:11 Dose: Not Given Documented By: CHRISTIAN Non-Admin Reason: Patient Refused Ondansetron HCl (Ondansetron Hcl 4 Mg/2 Ml Vial) 4 mg IVPUSH Q8H PRN PRN Reason: Nausea and Vomiting Paroxetine HCl (Paroxetine Hcl 40 Mg Tablet) 40 mg PO DAILY [facility] Last Admin: 11/20/21 10:06 Dose: 40 mg Documented By: JESSICA Pharmacy Consult (Consult Rx Perform Med Rec) 1 each MISCELLANE ONCE PRN PRN Reason: Consult order Pharmacy Consult (Consult Rx Vancomycin Dosing) 1 each MISCELLANE DAILY PRN PRN Reason: Consult order Polyethylene Glycol (Polyethylene Glycol 3350 17 Gm Powd.Pack) 17 gm PO DAILY [facility] Last Admin: 11/20/21 10:06 Dose: 17 gm Documented By: JESSICA Sodium Chloride (0.9 % Sodium Chloride Flush 3 Ml Syringe) 3 ml IVFLUSH QSHIFT [facility] Last Admin: 11/20/21 10:10 Dose: Not Given Documented By: JESSICA Non-Admin Reason: No Access Labs CBC & Chem 7: 11/19/21 00:52 11/19/21 00:52 Labs: Laboratory Results - last 24 hr 11/19/21 11/20/21 20:17 07:25 POC Glucose 150 H 173 H Microbiology Microbiology Results: Microbiology 11/19/21 00:51 Blood Culture - Preliminary Blood - Venous Gram negative khushi Prelim: GPR Gram Stain only 11/19/21 Unknown Urine Culture - Preliminary Urine Catheterized - Merino Catheter Gram negative khushi 11/19/21 00:51 Blood Culture - Preliminary Blood - Venous Gram negative khushi Assessment and Plan (1) Gram-negative bacteremia: Status: Acute (2) Pressure ulcer of foot, stage 2: Status: Acute (3) Toxic metabolic encephalopathy: Status: Acute (4) Hematuria: Status: Acute Plan an 86 years old male with PMH of PE, chronic Merino, anemia among others who presents to the hospital after being found on the floor by SNF staff. toxic metabolic encephalopathy Seems to be secondary to infection, wound VS UTI Broad-spectrum antibiotics for now Recurrent reorientation gram-negative bacteremia Secondary to urinary tract infection Blood cultures growing GNR< she [place] stain only< pending final sensitivity Urine growing GNR Continue broad-spectrum antibiotics for now Rt ankle Pressure ulcer stage II Partial-thickness loss surgery input appreciated< small area to Braid< will follow if any further debridement need XR did not show any evidence of osteomyelitis To treat with antibiotics Hematuria Traumatic after removing his chronic Merino catheter < part of the Merino was broke and left behind in the urethra and bladder Keep Merino catheter in place for now Hold ASA, Plavix and Eliquis pending urology evaluati Leukopenia, anemia Unclear baseline Could be secondary to infection Will try to get old blood work and monitor CBC Parkinson continue home medications DVT PPX SCDs The patient will need overnight hospital stay for treatment of bacteremia pending final sensitivity to prevent possible decompensation in to sepsis. Quality Stroke Does the patient have a stroke diagnosis?: No VTE Prior VTE?: No VTE Risk Level:: Medical - moderate - high VTE Device Contraindication: Treatment Not Indicated VTE Drug Contraindication: N/A - Med Ordered
[2021-11-20 13:28] LABS: Glucose, Whole Blood 221 mg/dL (60-115)
--- NOTE | 2021-11-20 13:45 | PC.NURSE ---
pt was sitting on the side of his bed drinking cranberry juice and this leader writer saw the pt slide down to the floor onto his knees and started crawling and saying he was trying to get home. pt denied pain, no injury noted or reported. this leader writer along with other nursing staff and Dr. Holloway assisted pt back to bed. pt pulled out his vieira catheter, his LAC IV, and removed all his cardiac leads. Dr. Holloway said to leave the vieira out and straight cath the pt q6 hrs. after vieira was pulled out this leader writer noted a small clot on the tip of the catheter. the tip of his penis red and irritated,no bleeding noted from the penis, moderate amount of blood noted in the vieira bag.
--- NOTE | 2021-11-20 14:17 | PM.UROCN ---
History of Present Illness Consult details Consult date: 11/20/21 Narrative: consultation urethral foreign body 86-year-old male Transferred from SNF with confusion Apparently had pulled Merino catheter out yesterday that was longstanding Urine had been placed with question of foreign body This was removed and another replaced The patient was on the floor and slit of the bed in the emergency room when I saw him. Indwelling catheter in place disconnected. After team was assisted to place patient in bed recommendation to remove catheter and perform CIC q.6 hours while in hospital Catheter and catheter bag full risk Review of Systems Constitutional: Constitutional: Reports as per HPI and Reports no additional constitutional complaints Cardiovascular: Cardiovascular: Reports as per HPI and Reports no additional cardiovascular complaints Respiratory: Respiratory: Reports as per HPI and Reports no additional respiratory complaints Gastrointestinal: Gastrointestinal: Reports as per HPI and Reports no additional gastrointestinal complaints Genitourinary: Genitourinary: Reports as per HPI Musculoskeletal: Musculoskeletal: Reports no additional musculoskeletal complaints and Reports as per HPI Neurologic: Reports system reviewed and no additional complaints, except as documented and Reports as per HPI PMFSH Past Medical History Medical History Anemia Chronic indwelling Merino catheter Pulmonary embolus Wound of foot Social History Social History Patient Tobacco Use Status: Tobacco use Unknown Advance Directives: No Advance Directives Information Provided: Yes Meds Allergies Allergy/AdvReac Type Severity Reaction Status Date / Time sulfamethoxazole Allergy Unknown Unknown Verified 11/19/21 00:14 [From Bactrim] trimethoprim [From Bactrim] Allergy Unknown Unknown Verified 11/19/21 00:14 Active Medications: Current Medications Acetaminophen (Acetaminophen 325 Mg Tablet) 650 mg PO Q6H PRN PRN Reason: Pain, Mild (Pain Scale 1-3) Bicalutamide (Bicalutamide 50 Mg Tablet) 50 mg PO DAILY [facility] Last Admin: 11/20/21 10:06 Dose: 50 mg Carbamazepine (Carbamazepine 200 Mg Tablet) 200 mg PO BID [facility] Last Admin: 11/20/21 10:05 Dose: 200 mg Carbidopa/Levodopa (Carbidopa/Levodopa Cr 25/100 Tablet.Er) 1 tab PO TID [facility] Last Admin: 11/20/21 10:06 Dose: 1 tab Carvedilol (Carvedilol 6.25 Mg Tablet) 6.25 mg PO BID [facility]; Protocol Last Admin: 11/20/21 10:06 Dose: 6.25 mg Docusate Sodium (Docusate Sodium 100 Mg Capsule) 100 mg PO BID [facility] Last Admin: 11/20/21 10:06 Dose: 100 mg Donepezil HCl (Donepezil Hcl 10 Mg Tablet) 10 mg PO BEDTIME [facility] Last Admin: 11/19/21 21:21 Dose: 10 mg Gabapentin (Gabapentin 100 Mg Capsule) 100 mg PO BID [facility] Last Admin: 11/20/21 10:06 Dose: 100 mg Vancomycin HCl 1,250 mg/ (Sodium Chloride) 250 mls @ 166.667 mls/hr IV Q24H [facility] Cefazolin Sodium/Dextrose (Ancef) 2 gm in 50 mls @ 100 mls/hr IV Q8H [facility] Last Infusion: 11/20/21 13:28 Dose: Infused Omeprazole (Omeprazole 20 Mg Capsule.Dr) 20 mg PO DAILY@0630 [facility] Last Admin: 11/20/21 06:11 Dose: Not Given Ondansetron HCl (Ondansetron Hcl 4 Mg/2 Ml Vial) 4 mg IVPUSH Q8H PRN PRN Reason: Nausea and Vomiting Paroxetine HCl (Paroxetine Hcl 40 Mg Tablet) 40 mg PO DAILY [facility] Last Admin: 11/20/21 10:06 Dose: 40 mg Pharmacy Consult (Consult Rx Perform Med Rec) 1 each MISCELLANE ONCE PRN PRN Reason: Consult order Pharmacy Consult (Consult Rx Vancomycin Dosing) 1 each MISCELLANE DAILY PRN PRN Reason: Consult order Polyethylene Glycol (Polyethylene Glycol 3350 17 Gm Powd.Pack) 17 gm PO DAILY [facility] Last Admin: 11/20/21 10:06 Dose: 17 gm Sodium Chloride (0.9 % Sodium Chloride Flush 3 Ml Syringe) 3 ml IVFLUSH QSHIFT [facility] Last Admin: 11/20/21 10:10 Dose: Not Given Home Medications Medication Instructions Recorded Confirmed Last Taken Type acetaminophen 325 mg tablet 650 mg PO Q4H PRN Pain (Scale 11/19/21 11/19/21 Unknown History Score 1-3) apixaban 2.5 mg tablet 2.5 mg PO BID 11/19/21 11/19/21 Unknown History ascorbic acid (vitamin C) 500 mg 500 mg PO TID 11/19/21 11/19/21 Unknown History tablet aspirin 81 mg tablet,delayed 81 mg PO DAILY 11/19/21 11/19/21 Unknown History release bicalutamide 50 mg tablet 50 mg PO DAILY 11/19/21 11/19/21 Unknown History carbamazepine 200 mg tablet 200 mg PO BID 11/19/21 11/19/21 Unknown History carbidopa ER 25 mg-levodopa 100 mg 1 tab PO TID 11/19/21 11/19/21 Unknown History tablet,extended release carvedilol 6.25 mg tablet 6.25 mg PO BID 11/19/21 11/19/21 Unknown History cholecalciferol (vitamin D3) 125 125 mcg PO DAILY 11/19/21 11/19/21 Unknown History mcg (5,000 unit) tablet clonidine HCl 0.1 mg tablet 0.1 mg PO BID 11/19/21 11/19/21 Unknown History clopidogrel 75 mg tablet 75 mg PO DAILY 11/19/21 11/19/21 Unknown History cyanocobalamin (vitamin B-12) 1,000 mcg PO DAILY 11/19/21 11/19/21 Unknown History 1,000 mcg tablet docusate sodium 100 mg tablet 100 mg PO BID 11/19/21 11/19/21 Unknown History donepezil 10 mg tablet 10 mg PO BEDTIME 11/19/21 11/19/21 Unknown History doxycycline hyclate 100 mg tablet 100 mg PO BID 11/19/21 11/19/21 Unknown History ferrous sulfate 325 mg (65 mg 325 mg PO TID 11/19/21 11/19/21 Unknown History iron) tablet gabapentin 300 mg capsule 300 mg PO TID 11/19/21 11/19/21 Unknown History magnesium hydroxide 400 mg/5 mL 30 ml PO BEDTIME PRN Constipation 11/19/21 11/19/21 Unknown History oral suspension (Milk of Magnesia) methenamine hippurate 1 gram tablet 1 g PO BID 11/19/21 11/19/21 Unknown History omeprazole 20 mg tablet,delayed 20 mg PO DAILY@0630 11/19/21 11/19/21 Unknown History release paroxetine HCl 40 mg tablet 40 mg PO DAILY 11/19/21 11/19/21 Unknown History polyethylene glycol 3350 17 gram 17 g PO BID PRN Constipation 11/19/21 11/19/21 Unknown History oral powder packet (Miralax) polyethylene glycol 3350 17 gram 17 g PO DAILY 11/19/21 11/19/21 Unknown History oral powder packet (Miralax) rosuvastatin 10 mg tablet 10 mg PO DAILY 11/19/21 11/19/21 Unknown History Physical Exam Vital Signs: Vital Signs: Last Vital Signs Temp 98.9 F 11/20/21 00:20 Pulse 88 11/20/21 08:17 Resp 20 11/20/21 08:17 BP 134/61 11/20/21 08:17 Pulse Ox 94 11/20/21 08:17 O2 Del Method 11/20/21 08:17 O2 Flow Rate 1 11/20/21 08:17 Oxygen Flow Rate 2 11/19/21 00:03 BMI result Body Mass Index 30.9 Const: General: cooperative, healthy appearing, comfortable and no acute distress Orientation/consciousness: patient oriented x3 HEENT: Face and sinus: Yes normal facial exam Mouth: moist mucous membranes Neck: Neck: Yes normal visual inspection, Yes full ROM and Yes trachea midline Chest: Chest palpation & inspection: normal inspection of the chest Resp: Effort & Inspection: normal respiratory effort, able to speak in complete sentences and no respiratory distress GI: Inspection: Yes normal to inspection Back/Spine/Pelvis: Cervical Spine: normal cervical lordosis Thoracic/Lumbar Spine: thoracic and lumbar spine normal to inspection Skin: General skin exam: no rashes or lesions noted Neuro: General: patient oriented x3, tone normal and moves all extremities Extrem: General: Yes normal to inspection and Yes capillary refill normal Results Labs Result diagrams: 11/19/21 00:52 11/19/21 00:52 Labs: Abnormal lab results 11/19/21 11/20/21 11/20/21 Range/Units 20:17 07:25 12:52 POC Glucose 150 H 173 H 221 H (60-115) mg/dL Urine 11/19/21 Range/Units 10:33 Urine Color BROWN A Urine Appearance TURBID Urine pH 5.0 (5.0-8.0) Ur Specific [place] >= 1.030 H (1.005-1.025) Urine Protein 3+ H (NEG-TRACE) MG/DL Urine Glucose (UA) NEG (NEG) MG/DL All other labs normal. Assessment and Plan (1) Urinary retention with incomplete bladder emptying: Status: Acute Plan q.6 hours CIC Procedures Date of Service Date of Service: 11/20/21
[2021-11-20 15:30] LABS: Hematocrit 25.2 % (42.0-52.0); Hemoglobin 7.5 g/dl (14.0-18.0); Mean Corpuscular HGB Conc 29.8 g/dl (31.0-36.0); Mean Corpuscular Hemoglobin 28.2 pg (27.0-33.0); Mean Corpuscular Volume 94.7 fL (80.0-98.0); Mean Platelet Volume 9.5 fL (9.4-12.4); NRBC Pct Auto 0.2 /100WBC (0.0-0.2); Platelet Count 291 X10*3/uL (160-400); Red Blood Count 2.66 X10*6/uL (4.60-5.80); Red Cell Distribution Width 15.7 % (11.0-16.0); White Blood Count 22.5 X10*3/uL (4.8-10.8)
[2021-11-20 15:48] LABS: Anion Gap 14 (12-20); Blood Urea Nitrogen 37 mg/dL (9-16); Calcium 7.9 mg/dL (8.4-10.2); Carbon Dioxide 23 mmol/L (22-29); Chloride 108 mmol/L (96-108); Creatinine Clr Calc Pharmacy 38.1; Estimated Glomerular Filt Rate 34; Glucose Random 232 mg/dL (60-115); Potassium 3.7 mmol/L (3.3-5.1); Sodium 141 mmol/L (135-145)
[2021-11-20 16:18] LABS: Magnesium 2.7 mg/dL (1.6-2.6)
--- NOTE | 2021-11-20 20:40 | PC.NURSE ---
Pt complaining that he needs to urinate and attempting climb out of bed. Bladder scanned performed to find 377 mL in the bladder. This RN inserted straight cath to remove 100 mL of reddish brown urine with blood clots. Pt stated that he is more comfortable now and doesn't feel like he has to go as bad.
[2021-11-20] MEDS: Donepezil HCl 10 MG TABLET PO (22:50)
[2021-11-20 22:52] VITALS: BP 156/64; PULSE 66; RESP 18; TEMP 36.2; O2SAT 94
[2021-11-21] MEDS: vancomycin HCL 1,250 MG in 0.9 % Sodium Chloride 250 ML 166.67 MG IV (01:33)
[2021-11-21] MEDS: 0.9 % Sodium Chloride Flush 3 ML SYRINGE IVFLUSH ×2 (01:40→15:00)
[2021-11-21] MEDS: ceFAZolin Sodium/Dextrose,Iso 2 GM/50 ML PIGGYBACK IV ×3 (05:00→20:54)
--- NOTE | 2021-11-21 07:04 | PC.NURSE ---
Patient urinated large amount on bedpan . Bladder scanned for 0ml post void. Will continue to monitor.
[2021-11-21 08:28] LABS: Hematocrit 24.8 % (42.0-52.0); Hemoglobin 7.4 g/dl (14.0-18.0); Mean Corpuscular HGB Conc 29.8 g/dl (31.0-36.0); Mean Corpuscular Hemoglobin 28.5 pg (27.0-33.0); Mean Corpuscular Volume 95.4 fL (80.0-98.0); Mean Platelet Volume 9.5 fL (9.4-12.4); NRBC Pct Auto 0.3 /100WBC (0.0-0.2); Platelet Count 293 X10*3/uL (160-400); Red Cell Distribution Width 15.9 % (11.0-16.0); White Blood Count 16.9 X10*3/uL (4.8-10.8)
[2021-11-21 08:43] LABS: Anion Gap 14 (12-20); Blood Urea Nitrogen 36 mg/dL (9-16); Carbon Dioxide 23 mmol/L (22-29); Chloride 109 mmol/L (96-108); Creatinine Clr Calc Pharmacy 40.5; Estimated Glomerular Filt Rate 37; Glucose Random 204 mg/dL (60-115); Potassium 3.6 mmol/L (3.3-5.1); Sodium 142 mmol/L (135-145)
[2021-11-21] MEDS: polyethylene glycoL 3350 17 GM POWD.PACK PO (09:17)
[2021-11-21] MEDS: PARoxetine HCL 40 MG TABLET PO (09:22)
[2021-11-21] MEDS: carvediloL 6.25 MG TABLET PO ×2 (09:22→20:55)
[2021-11-21] MEDS: Docusate Sodium 100 MG CAPSULE PO ×2 (09:22→20:54)
[2021-11-21] MEDS: Carbidopa/Levodopa CR 25/100 TABLET.ER 1 TAB PO ×3 (09:22→20:55)
[2021-11-21] MEDS: Bicalutamide 50 MG TABLET PO (09:22)
[2021-11-21] MEDS: carBAMazepine 200 MG TABLET PO ×2 (09:23→20:54)
[2021-11-21] MEDS: Gabapentin 100 MG CAPSULE PO ×2 (09:23→20:54)
--- NOTE | 2021-11-21 09:38 | PC.NURSE ---
bed change patient washed in bed reposition .
[2021-11-21 11:13] VITALS: BP 153/69; PULSE 64; RESP 12; TEMP 35.7
--- NOTE | 2021-11-21 11:22 | HO.PM.IMPN ---
Subjective Subjective Date of Service: 11/21/21 Interval History: the patient was seen and evaluated this morning Laying in bed, More alert and interactive More alert and interactive , less aggressive Blood cultures growing E coli, have gram-positive rods as well still pending final sensitivity No reported other overnight events. Systemic review: No fever, chills or weakness No chest pain, palpitation No shortness of breath or coughing No abdominal pain, nausea or vomiting Merino catheter at place Right lower extremity heel wound< not painful Physical Exam Vital Signs: Vital Signs: Last Vital Signs Temp 96.2 F L 11/21/21 11:13 Pulse 64 11/21/21 11:13 Resp 12 11/21/21 11:13 BP 153/69 H 11/21/21 11:13 Pulse Ox 94 11/20/21 22:52 O2 Del Method 11/21/21 11:13 O2 Flow Rate 1 11/20/21 08:17 Oxygen Flow Rate 2 11/19/21 00:03 BMI result Body Mass Index 30.9 Const: Other: Constitutional : alert< interactive, not in distress Neck : Normal inspection, Supple Cardiovascular : RRR, no JVP, trace bilateral lower extremity edema Respiratory : fair bilateral air entry, no crackles, wheezes or rhonchi Gastrointestinal: soft, lax, Normal bowel sounds, Non tender Skin : Warm, Dry, follow old drainage wound on the right ankle with fall others and pressure ulcer grade 2 Neurological : alert< interactive< no focal deficit noticed< mildly confused but oriented to self and time Objective Data Active Medications Acetaminophen (Acetaminophen 325 Mg Tablet) 650 mg PO Q6H PRN PRN Reason: Pain, Mild (Pain Scale 1-3) Bicalutamide (Bicalutamide 50 Mg Tablet) 50 mg PO DAILY [facility] Last Admin: 11/21/21 09:22 Dose: 50 mg Documented By: JESSICA Carbamazepine (Carbamazepine 200 Mg Tablet) 200 mg PO BID [facility] Last Admin: 11/21/21 09:23 Dose: 200 mg Documented By: JESSICA Carbidopa/Levodopa (Carbidopa/Levodopa Cr 25/100 Tablet.Er) 1 tab PO TID [facility] Last Admin: 11/21/21 09:22 Dose: 1 tab Documented By: JESSICA Carvedilol (Carvedilol 6.25 Mg Tablet) 6.25 mg PO BID [facility]; Protocol Last Admin: 11/21/21 09:22 Dose: 6.25 mg Documented By: JESSICA Docusate Sodium (Docusate Sodium 100 Mg Capsule) 100 mg PO BID [facility] Last Admin: 11/21/21 09:22 Dose: 100 mg Documented By: JESSICA Donepezil HCl (Donepezil Hcl 10 Mg Tablet) 10 mg PO BEDTIME [facility] Last Admin: 11/20/21 22:50 Dose: 10 mg Documented By: ARACELI Gabapentin (Gabapentin 100 Mg Capsule) 100 mg PO BID [facility] Last Admin: 11/21/21 09:23 Dose: 100 mg Documented By: JESSICA Vancomycin HCl 1,250 mg/ (Sodium Chloride) 250 mls @ 166.667 mls/hr IV Q24H [facility] Last Infusion: 11/21/21 07:08 Dose: 166.67 mls/hr Documented By: YUDY Cefazolin Sodium/Dextrose (Ancef) 2 gm in 50 mls @ 100 mls/hr IV Q8H [facility] Last Infusion: 11/21/21 07:09 Dose: 0 mls/hr Documented By: YUDY Omeprazole (Omeprazole 20 Mg Capsule.Dr) 20 mg PO DAILY@0630 [facility] Last Admin: 11/21/21 06:53 Dose: Not Given Documented By: YUDY Non-Admin Reason: Patient Refused Ondansetron HCl (Ondansetron Hcl 4 Mg/2 Ml Vial) 4 mg IVPUSH Q8H PRN PRN Reason: Nausea and Vomiting Paroxetine HCl (Paroxetine Hcl 40 Mg Tablet) 40 mg PO DAILY [facility] Last Admin: 11/21/21 09:22 Dose: 40 mg Documented By: JESSICA Pharmacy Consult (Consult Rx Perform Med Rec) 1 each MISCELLANE ONCE PRN PRN Reason: Consult order Pharmacy Consult (Consult Rx Vancomycin Dosing) 1 each MISCELLANE DAILY PRN PRN Reason: Consult order Polyethylene Glycol (Polyethylene Glycol 3350 17 Gm Powd.Pack) 17 gm PO DAILY [facility] Last Admin: 11/21/21 09:17 Dose: 17 gm Documented By: JESSICA Sodium Chloride (0.9 % Sodium Chloride Flush 3 Ml Syringe) 3 ml IVFLUSH QSHIFT [facility] Last Admin: 11/21/21 09:07 Dose: Not Given Documented By: HO.JAMESCL Non-Admin Reason: IV Running Labs CBC & Chem 7: 11/21/21 08:00 11/21/21 08:00 Labs: Laboratory Results - last 24 hr 11/20/21 11/20/21 11/20/21 12:52 15:04 15:04 MCV 94.7 MCH 28.2 MCHC 29.8 L RDW 15.7 Plt Count 291 MPV 9.5 Absolute Nucleated RBC 0.050 H Nucleated RBC % (auto) 0.2 Anion Gap 14 Estim Creat Clear Calc 38.1 Estimated GFR 34 POC Glucose 221 H Random Glucose 232 H D Calcium 7.9 L D Magnesium 2.7 H 11/21/21 11/21/21 08:00 08:00 MCV 95.4 MCH 28.5 MCHC 29.8 L RDW 15.9 Plt Count 293 MPV 9.5 Absolute Nucleated RBC 0.050 H Nucleated RBC % (auto) 0.3 H Anion Gap 14 Estim Creat Clear Calc 40.5 Estimated GFR 37 POC Glucose Random Glucose 204 H Calcium 8.0 L Magnesium Microbiology Microbiology Results: Microbiology 11/19/21 Unknown Urine Culture - Final Urine Catheterized - Merino Catheter Escherichia coli 11/19/21 00:51 Blood Culture - Final Blood - Venous Escherichia coli 11/19/21 00:51 Blood Culture - Preliminary Blood - Venous Escherichia coli Prelim: GPR Gram Stain only Assessment and Plan (1) Urinary retention with incomplete bladder emptying: Status: Acute (2) Gram-negative bacteremia: Status: Acute (3) Hematuria: Status: Acute (4) Toxic metabolic encephalopathy: Status: Acute Plan an 86 years old male with PMH of PE, chronic Merino, anemia among others who presents to the hospital after being found on the floor by SNF staff. toxic metabolic encephalopathy Seems to be secondary to infection, wound VS UTI , delirium Improving Broad-spectrum antibiotics for now Recurrent reorientation E coli bacteremia Secondary to urinary tract infection Blood cultures growing GNR< she [place] stain only< pending final sensitivity Urine growing GNR Continue broad-spectrum antibiotics for now Rt ankle Pressure ulcer stage II Partial-thickness loss surgery input appreciated< small area to Braid< will follow if any further debridement need XR did not show any evidence of osteomyelitis To treat with antibiotics Hematuria Traumatic after removing his chronic Merino catheter < part of the Merino was broke and fixed by urologist thom ASA and JUANCARLOS Feng Plavix Urology input appreciated, to do straight cath for the time being. normocytic anemia chronic 2/2 CKD monitor CBC Parkinson continue home medications DVT PPX SCDs The patient will need overnight hospital stay for treatment of bacteremia , to restart blood thinners and monitor for hematuria to prevent possible worsening anemia, pending placement. Quality Stroke Does the patient have a stroke diagnosis?: No VTE Prior VTE?: No VTE Risk Level:: Medical - moderate - high VTE Device Contraindication: Treatment Not Indicated VTE Drug Contraindication: N/A - Med Ordered
[2021-11-21] MEDS: Ferrous Sulfate 324 MG TABLET.DR PO ×2 (14:53→20:54)
[2021-11-21] MEDS: Apixaban 2.5 MG TABLET PO ×2 (14:53→20:54)
[2021-11-21] MEDS: Donepezil HCl 10 MG TABLET PO (20:54)
[2021-11-21 21:58] LABS: Vancomycin Random 17.8 mcg/mL (15-20)
--- NOTE | 2021-11-21 22:04 | HE.PHANOTE ---
RE VANCO SCR starting to trend down. Random trough was 17.8 after 2 doses. I will be decreasing dose to 750 mg q24, suspected auc 415, trough 13.8. Next random is due 11/23@2100. will consult with hospitalist as it looks like patient is growing bacteria susceptible to ceftriaxone
[2021-11-21] MEDS: vancomycin HCL 750 MG in 0.9 % Sodium Chloride 250 ML 265 MG IV (23:13)
[2021-11-21 23:56] VITALS: BP 161/69; PULSE 66; RESP 18; TEMP 37.2; O2SAT 86
[2021-11-22 00:05] VITALS: O2SAT 97
[2021-11-22] MEDS: 0.9 % Sodium Chloride Flush 3 ML SYRINGE IVFLUSH ×3 (01:28→15:02)
[2021-11-22 03:29] VITALS: BP 168/93; PULSE 68; RESP 16; TEMP 36; O2SAT 98
[2021-11-22] MEDS: ceFAZolin Sodium/Dextrose,Iso 2 GM/50 ML PIGGYBACK IV ×2 (05:03→12:52)
[2021-11-22] MEDS: Omeprazole 20 MG CAPSULE.DR PO (05:04)
[2021-11-22 06:09] LABS: Hematocrit 26.2 % (42.0-52.0); Hemoglobin 7.7 g/dl (14.0-18.0); Mean Corpuscular HGB Conc 29.4 g/dl (31.0-36.0); Mean Corpuscular Hemoglobin 28.1 pg (27.0-33.0); Mean Corpuscular Volume 95.6 fL (80.0-98.0); Mean Platelet Volume 9.6 fL (9.4-12.4); NRBC Pct Auto 0.5 /100WBC (0.0-0.2); Platelet Count 280 X10*3/uL (160-400); Red Blood Count 2.74 X10*6/uL (4.60-5.80); Red Cell Distribution Width 16.4 % (11.0-16.0); White Blood Count 10.5 X10*3/uL (4.8-10.8)
--- NOTE | 2021-11-22 06:35 | PC.NURSE ---
Assumed care at 2315. Patient found to be incont of urine. Bladderscanned at start of shift for <400. Pericare done & repositioned. Patient drowsy, but arousable and cooperative w/ care. Patient denies pain. Full upper dentures removed - denture care done. External cath put on. Patient O2 down to 87% on room air while sleeping - applied 2 liters via nasal cannula. Patient sleeping / non labored respirations, eyes closed, arousable to verbal / tactile stimulation. Bed alarm on for safety.
[2021-11-22 06:38] LABS: Anion Gap 10 (12-20); Blood Urea Nitrogen 30 mg/dL (9-16); Calcium 7.8 mg/dL (8.4-10.2); Carbon Dioxide 26 mmol/L (22-29); Chloride 108 mmol/L (96-108); Creatinine Clr Calc Pharmacy 47.2; Estimated Glomerular Filt Rate 44; Glucose Random 169 mg/dL (60-115); Potassium 3.8 mmol/L (3.3-5.1); Sodium 140 mmol/L (135-145)
--- NOTE | 2021-11-22 07:01 | PC.NURSE ---
Report received from Federico Oconnell RN
[2021-11-22 08:57] VITALS: BP 165/85; PULSE 67; RESP 16; TEMP 36.2; O2SAT 99
[2021-11-22] MEDS: carvediloL 6.25 MG TABLET PO (09:05)
[2021-11-22] MEDS: carBAMazepine 200 MG TABLET PO (09:05)
[2021-11-22] MEDS: Aspirin Enteric Coated 81 MG TABLET.DR PO (09:07)
[2021-11-22] MEDS: Apixaban 2.5 MG TABLET PO (09:07)
[2021-11-22] MEDS: Carbidopa/Levodopa CR 25/100 TABLET.ER 1 TAB PO ×2 (09:07→14:12)
[2021-11-22] MEDS: Ferrous Sulfate 324 MG TABLET.DR PO ×2 (09:08→14:12)
[2021-11-22] MEDS: Docusate Sodium 100 MG CAPSULE PO (09:08)
[2021-11-22] MEDS: Gabapentin 100 MG CAPSULE PO (09:09)
[2021-11-22] MEDS: polyethylene glycoL 3350 17 GM POWD.PACK PO (09:09)
[2021-11-22] MEDS: Bicalutamide 50 MG TABLET PO (09:09)
[2021-11-22] MEDS: PARoxetine HCL 40 MG TABLET PO (09:09)
--- NOTE | 2021-11-22 09:38 | P.CDIC_ITS ---
CDI Concurrent Query Documentation Clarification: PHYSICIAN'S DOCUMENTATION REQUEST Date of Query: 11/22/21 0938 Patient Name: Nakul Mendes Admit Date: 11/19/21 Dear Doctor, A review of the medical record indicates additional documentation may be needed. Please review below and update the documentation accordingly. Clinical Indicators: Risk Factors/Clinical Indicators/Treatments Per MD progress note 11/20/21: Patient presents with a right heel ulcer which appears chronic with an underlying eschar directly over the Achilles tendon.? Patient noted to have foul-smelling discharge in the emergency department on initial evaluation.? Currently the wound is dry.? Some of the desquamated skin was debrided (2 x 2 cm) Could you provide, in the Progress Notes, further clarification regarding the debridement? Please specify the type of debridement performed: * Excisional debridement - defined as removal by excision of: devitalized tissue, necrosis, or slough * Non-excisional debridement - defined as removal of devitalized tissue, necrosis, or slough by such methods as: irrigation, brushing, scrubbing, or washing. If the debridement was excisional please also include: * Type of instrument used (#11 blade, #15 blade, etc.) * What was excised (necrotic tissue, gangrenous tissue, slough, etc.) For excisional or non-excisional, please also include: * Depth of debridement (skin, subcutaneous tissue, muscle, fascia, bone, etc.) * Size and appearance of the wound (L,W,D, color of wound, drainage) Use of terms such as suspected, likely, concern for, or probable (associated with a specific diagnosis that is being evaluated, monitored, or treated as if it exists) are acceptable and can be coded in the inpatient setting, when documented at the time of discharge. Thank you, Saloni Julio RN Extension: [phone] Please use your independent medical judgment in providing your response. THIS QUERY IS PART OF THE PERMANENT MEDICAL RECORD Provider Response: Other Other Diagnosis: Excisional debridement of right heel using scissors and forceps to remove epidermis 2x2 cm which was sloughing.
--- NOTE | 2021-11-22 09:55 | P.CDIC_ITS ---
CDI Concurrent Query Documentation Clarification: PHYSICIAN'S DOCUMENTATION REQUEST Date of Query: 11/22/21 0955 Patient Name: Nakul Mendes Admit Date: 11/19/21 Dear Doctor, A review of the medical record indicates additional documentation may be needed. Please review below and update the documentation accordingly. 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 Increase in serum creatinine by ? 0.3 mg/dL Level Description GFR (?26.5 micromol/L) within 48 hours, or G1 Normal or High > 90 2. Increase in serum creatinine to ?1.5 times baseline, G2 Mildly decreased 60 ? 89 which is known or presumed to have occurred within 7 days, or G3a Mildly to moderately decreased 45 ? 59 3. Urine volume <0.5 mL/kg/hour for six hours G3b Moderately to severely decreased 30 - 44 G4 Severely decreased 15 ? 29 G5 Kidney failure < 15 *Source: Kidney Disease: Improving Global Outcomes (KDIGO) 2012 Use of terms such as suspected, likely, concern for, or probable (associated with a specific diagnosis that is being evaluated, monitored, or treated as if it exists) are acceptable and can be coded in the inpatient setting, when documented at the time of discharge. Thank you, Saloni Julio RN Extension: [phone] Please use your independent medical judgment in providing your response. THIS QUERY IS PART OF THE PERMANENT MEDICAL RECORD Provider Response: CKD Stage 3
--- NOTE | 2021-11-22 10:52 | MHC.CM.PN ---
CM CALLED PTS , CLARISA [phone], WHO REPORTS THE PT HAS BEEN AT [facility] FOR STR AND WAS SUPPOSED TO BE DISCHARGED FROM THERE ON 11/23/21. SHE REPORTS AT HOME THE PT HAS NO SERVICES AND SHE PROVIDES ALL OF HIS CARE PT IS W/C BOUND AT BASELINE AND SHE IS ABLE TO TRANSFER HIM SHE REPORTS THEY ADDED AN ADDITION TO THE HOME SEVERAL YEARS AGO THAT IS COMPLETELY HANDICAP ACCESSIBLE. CLARISA REPORTS THE PT IS A AND SHE IS [facility]ING [facility] SHE REPORTS IF IT WOULD BE SAFE, SHE WOULD PREFER THE PT TO RETURN HOME AT DISCHARGE. HCP NOW ON FILE PCP: EDITH AGARWAL IMM DELIVERED, COPY SENT TO [facility] RECORDS CURRENTLY DC PLAN TBD IS HOPING PT CAN RETURN HOME BUT IS OPEN TO CONTINUED STR AT [facility] IF NECESSARY TRANSPORT VS BLS DEPENDING ON DISPO
--- NOTE | 2021-11-22 11:24 | HE.PHANOTE ---
Addendum entered by Rosalinda Monteiro RPh 11/22/21 11:26: New vancomycin dose is 1000mg Q24H (not Q12H). Original Note: Vancomycin Dosing Addendum Patient's renal function is improving. SCr is now 1.52 from 1.77 yesterday. Will increase dose to vancomycin 1000 mg Q12H. Expected AUC 485 with a trough of 15.7. Level to be drawn tomorrow 11/23 @ 2100. Pharmacy will continue to monitor renal function daily. Rosalinda Monteiro, PharmD
--- NOTE | 2021-11-22 11:27 | PC.NURSE ---
Report given to MELE Rollins
--- NOTE | 2021-11-22 12:13 | PM.DS ---
DS: Providers Provider Date of Service: 11/22/21 Date of admission: 11/19/21 10:33 Primary care physician: Azul Meza MD Consults: 11/19/21 10:29 Consult to General Surgery Routine Consulting Provider: Dharmesh Martinez Reason for consultation: Rt foot open wound with sloughed skin 11/20/21 11:55 Consult to Urology Routine Consulting Provider: Brian Holloway Reason for consultation: Merino broke into the bladder, new catheter inserted on top of it 11/21/21 10:54 Consult to Infectious Diseases Routine Consulting Provider: Tammi Solis Reason for consultation: GPR in blood Cx, Ecoli bacteremia DS: Diagnosis Discharge Diagnosis (1) Urinary retention with incomplete bladder emptying: Status: Acute (2) Gram-negative bacteremia: Status: Acute (3) Hematuria: Status: Acute (4) Toxic metabolic encephalopathy: Status: Acute (5) Pressure ulcer of foot, stage 2: Status: Acute (6) Fall: Status: Acute DS: Summary Hospital Course Hospital Course: Admission note HPI ?an 86 years old male with PMH of PE, chronic Merino, anemia among others who presents to the hospital after being found on the floor by SNF staff.? The patient could not provide any meaningful history at time of presentation as his mentation was altered and very difficult to arouse.? History was taken from emergency physician who reported that he was told by EMS staff the patient was confused mainly complaining of leg pain And he pulled his Merino out. ?in the emergency x-ray of the lower extremity was negative for any acute fracture.? Brain image negative for any acute insults. He was found to have a right lower extremity? ankle open wound with foul smell? And purulent C.? Admitted for further evaluation and? treatment. Hospital course The patient was admitted to the hospital for evaluation of altered mental status which was believed to be secondary to infection as his urine was showing evidence of UTI. He was started on IV ceftriaxone as blood cultures grew E coli pansensitive. His mentation improved back to his baseline. Will be discharged on Ceftin for 10 more days to finish total of 14 days of antibiotics. He developed hematuria at time of presentation from removing his Merino catheter himself. Evaluated by urologist as his aspirin, Plavix and Eliquis were held. Urology recommended intermittent self catheterization during the hospital stay and to place Merino at time of discharge. The Merino catheter will be removed at home after he settles down. Hematuria resolved. Discussed the need of aspirin, Plavix and Eliquis with his who reported that he has multiple doctors and she is not sure. Will hold Plavix at time of discharge to minimize the risk of hematuria again. 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 Noted to have right ankle pressure ulcer stage II that was evaluated by surgery team who did bedside debridement and recommended outpatient follow-up with the wound clinic as x-ray did not show any evidence of osteomyelitis. Evaluated by physical therapy team who recommended short-term rehab but the patient and his would prefer to go back home and do physical therapy at home. Continue Ceftin for 10 more days Hold Plavix for now, discussed the need of it with your PCP, superintendent job To do physical therapy at home Merino catheter can be discontinued in a week and to start self catheterization at home. To follow-up with the wound clinic Time Spent with Patient Time attestation: Total time spent providing and/or coordinating discharge services: Discharge coordination time: Greater than 30 minutes Quality: Safe Use of Opioids Does Pt have an Active Cancer Diagnosis on the Problem List?: No Quality: Stroke Does the patient have a stroke diagnosis?: No Physical Exam Vital Signs: Vital Signs: Last Vital Signs Temp 97.1 F 11/22/21 08:57 Pulse 67 11/22/21 08:57 Resp 16 11/22/21 08:57 BP 165/85 H 11/22/21 08:57 Pulse Ox 99 11/22/21 08:57 O2 Del Method 11/22/21 08:57 O2 Flow Rate 2 11/22/21 08:57 Oxygen Flow Rate 2 11/19/21 00:03 BMI result Body Mass Index 30.9 Const: Other: Constitutional : alert< interactive, not in distress Neck : Normal inspection, Supple Cardiovascular : RRR, no JVP, trace bilateral lower extremity edema Respiratory : fair bilateral air entry, no crackles, wheezes or rhonchi Gastrointestinal: soft, lax, Normal bowel sounds, Non tender Skin : Warm, Dry, wound on the right ankle of pressure ulcer grade 2 covered with dressing, no drainage noted. Neurological : alert< interactive< no focal deficit noticed but overall weak < oriented to self and time DS: Data Data Completed and Pending Labs on day of discharge: Laboratory Results - last 24 hr 11/21/21 11/22/21 11/22/21 21:00 05:49 05:49 WBC 10.5 RBC 2.74 L Hgb 7.7 L Hct 26.2 L MCV 95.6 MCH 28.1 MCHC 29.4 L RDW 16.4 H Plt Count 280 MPV 9.6 Absolute Nucleated RBC 0.050 H Nucleated RBC % (auto) 0.5 H Sodium 140 Potassium 3.8 Chloride 108 Carbon Dioxide 26 Anion Gap 10 L BUN 30 H Creatinine 1.52 H Estim Creat Clear Calc 47.2 Estimated GFR 44 Random Glucose 169 H Calcium 7.8 L Random Vancomycin 17.8 Preliminary micro results at discharge 11/20/21 15:04 Blood Culture - Preliminary Blood - Venous No growth after 24 hours. 11/20/21 15:04 Blood Culture - Preliminary Blood - Venous No growth after 24 hours. Discharge Plan Discharge Patient Disposition: Home Health Service Discharge Diagnosis: Urinary tract infection E coli bacteremia Pressure ulcer of the foot stage II Urinary retention Toxic metabolic encephalopathy Referrals: Azul Meza MD [Primary Care Provider] - 1 Week Discharge Medications: New cefuroxime axetil 500 mg tablet 500 mg PO Q12H Qty: 20 0RF Continued bicalutamide 50 mg Tablet 50 mg PO DAILY clonidine HCl 0.1 mg Tablet 0.1 mg PO BID acetaminophen 325 mg Tablet 650 mg PO Q4H PRN (Reason: Pain (Scale Score 1-3)) carvedilol 6.25 mg Tablet 6.25 mg PO BID Rx Instructions: must administer with a meal/food carbidopa-levodopa 25-100 mg Tablet Extended Release 1 tab PO TID polyethylene glycol 3350 [Miralax] 17 gram Powder In Packet 17 g PO BID PRN (Reason: Constipation) polyethylene glycol 3350 [Miralax] 17 gram Powder In Packet 17 g PO DAILY donepezil 10 mg Tablet 10 mg PO BEDTIME cyanocobalamin (vitamin B-12) 1,000 mcg Tablet 1,000 mcg PO DAILY aspirin 81 mg Tablet,Delayed Release (Dr/Ec) 81 mg PO DAILY carbamazepine 200 mg Tablet 200 mg PO BID methenamine hippurate 1 gram Tablet 1 g PO BID magnesium hydroxide [Milk of Magnesia] 400 mg/5 mL Suspension 30 ml PO BEDTIME PRN (Reason: Constipation) ascorbic acid (vitamin C) 500 mg Tablet 500 mg PO TID ferrous sulfate 325 mg (65 mg iron) Tablet 325 mg PO TID gabapentin 300 mg Capsule 300 mg PO TID paroxetine HCl 40 mg Tablet 40 mg PO DAILY docusate sodium 100 mg Tablet 100 mg PO BID rosuvastatin 10 mg Tablet 10 mg PO DAILY omeprazole 20 mg Tablet,Delayed Release (Dr/Ec) 20 mg PO DAILY@0630 cholecalciferol (vitamin D3) 125 mcg (5,000 unit) Tablet 125 mcg PO DAILY apixaban 2.5 mg Tablet 2.5 mg PO BID Held clopidogrel 75 mg Tablet 75 mg PO DAILY Hold Instructions: Evaluate the need by PCP after discharge. Hold for now. Discontinued doxycycline hyclate 100 mg Tablet 100 mg PO BID Rx Instructions: STOP DATE 11/26 Discharge Orders: Discharge Order (Routine); Ordered 11/22/21 Ordered By: Ivett Delarosa Diet: Advance to usual diet Activity on Discharge: As tolerated Stand Alone Forms: Patient Portal Discharge page Care Plan Goals: Read below Health Concerns: Read below Plan of Treatment: Read below Assessment: You were admitted to the hospital for evaluation of altered mental status. Found to have urinary tract infection. Your urine and blood cultures grew bacteria called E coli sensitive to antibiotics. Your mentation improved significantly with antibiotics. You were evaluated by physical therapy team who recommended short-term rehab but you and your preferred to go back home with visiting nurses. Continue Ceftin for 10 more days Hold Plavix for now, discussed the need of it with your PCP, superintendent job To do physical therapy at home Merino catheter can be discontinued in a week and to start self catheterization at home. To follow-up with the wound clinic
--- NOTE | 2021-11-22 12:34 | PC.NURSE ---
Addendum entered by Andrés Estevez 11/22/21 13:48: Vieira catheter could not be inserted. Hospitalist notofied. Original Note: Dr. Delarosa ordered 18 fr vieira catheter for patient.
--- NOTE | 2021-11-22 13:39 | P.F2F_ITS ---
Service Date Service Date: 11/22/21 Encounter Date of encounter: 11/22/21 Reasons for Services Signs and symptoms assessed: Physical deconditioning Bacteremia Reason for retirement: medication management and teach disease management Reason for physical therapy: home safety and mobility and therapeutic exercises Homebound: Leaving the home is medically contraindicated at this time without the asist of a device and/or another person due th the listed conditions above and below. Reason homebound: unsteady gait / fall risk Certification: Based on the above findings, I certify that this patient is confined to the home and needs intermittent retirement care, physical therapy and/or speech therapy, or continues to need occupational therapy. The patient is under my care, and I have initiated the establishment of the plan of care. The patient will be followed by a physician who will periodically review the plan of care.
--- NOTE | 2021-11-22 13:51 | W.PM.IDCN ---
History of Present Illness Data of Consult Service Date: 11/22/21 Requesting physician: Ivett Delarosa Primary Care Provider: Azul Meza MD [facility] Reason for consult: bacteremia He was found on floor by staff. He has bladder dysfunction He had Ecoli blood ,urine Review of Systems Review of Systems: Yes Unobtainable due to mental condition PMFSH Past Medical History Medical History Anemia Chronic indwelling Merino catheter Pulmonary embolus Wound of foot Family History Family history: reviewed and not pertinent Social History Social History Patient Tobacco Use Status: Tobacco use Unknown Advance Directives: Yes Advance Directives Information Provided: Yes Advance Directives on File: Yes Advance Directives Date on File: 11/22/21 service: Yes Current occupational status: retired Meds Allergies Allergy/AdvReac Type Severity Reaction Status Date / Time sulfamethoxazole Allergy Unknown Unknown Verified 11/19/21 00:14 [From Bactrim] trimethoprim [From Bactrim] Allergy Unknown Unknown Verified 11/19/21 00:14 Active Medications: Current Medications Acetaminophen (Acetaminophen 325 Mg Tablet) 650 mg PO Q6H PRN PRN Reason: Pain, Mild (Pain Scale 1-3) Apixaban (Apixaban 2.5 Mg Tablet) 2.5 mg PO BID [facility] Last Admin: 11/22/21 09:07 Dose: 2.5 mg Aspirin (Aspirin Enteric Coated 81 Mg Tablet.Dr) 81 mg PO DAILY [facility] Last Admin: 11/22/21 09:07 Dose: 81 mg Bicalutamide (Bicalutamide 50 Mg Tablet) 50 mg PO DAILY [facility] Last Admin: 11/22/21 09:09 Dose: 50 mg Carbamazepine (Carbamazepine 200 Mg Tablet) 200 mg PO BID [facility] Last Admin: 11/22/21 09:05 Dose: 200 mg Carbidopa/Levodopa (Carbidopa/Levodopa Cr 25/100 Tablet.Er) 1 tab PO TID [facility] Last Admin: 11/22/21 09:07 Dose: 1 tab Carvedilol (Carvedilol 6.25 Mg Tablet) 6.25 mg PO BID [facility]; Protocol Last Admin: 11/22/21 09:05 Dose: 6.25 mg Docusate Sodium (Docusate Sodium 100 Mg Capsule) 100 mg PO BID [facility] Last Admin: 11/22/21 09:08 Dose: 100 mg Donepezil HCl (Donepezil Hcl 10 Mg Tablet) 10 mg PO BEDTIME [facility] Last Admin: 11/21/21 20:54 Dose: 10 mg Ferrous Sulfate (Ferrous Sulfate 324 Mg Tablet.) 324 mg PO TID [facility] Last Admin: 11/22/21 09:08 Dose: 324 mg Gabapentin (Gabapentin 100 Mg Capsule) 100 mg PO BID [facility] Last Admin: 11/22/21 09:09 Dose: 100 mg Cefazolin Sodium/Dextrose (Ancef) 2 gm in 50 mls @ 100 mls/hr IV Q8H [facility] Last Admin: 11/22/21 12:52 Dose: 100 mls/hr Magnesium Hydroxide (Milk Of Magnesia 30 Ml Oral.Susp) 30 ml PO BEDTIME PRN PRN Reason: Constipation Omeprazole (Omeprazole 20 Mg Capsule.) 20 mg PO DAILY@0630 [facility] Last Admin: 11/22/21 05:04 Dose: 20 mg Ondansetron HCl (Ondansetron Hcl 4 Mg/2 Ml Vial) 4 mg IVPUSH Q8H PRN PRN Reason: Nausea and Vomiting Paroxetine HCl (Paroxetine Hcl 40 Mg Tablet) 40 mg PO DAILY [facility] Last Admin: 11/22/21 09:09 Dose: 40 mg Pharmacy Consult (Consult Rx Perform Med Rec) 1 each MISCELLANE ONCE PRN PRN Reason: Consult order Pharmacy Consult (Consult Rx Vancomycin Dosing) 1 each MISCELLANE DAILY PRN PRN Reason: Consult order Polyethylene Glycol (Polyethylene Glycol 3350 17 Gm Powd.Pack) 17 gm PO DAILY [facility] Last Admin: 11/22/21 09:09 Dose: 17 gm Sodium Chloride (0.9 % Sodium Chloride Flush 3 Ml Syringe) 3 ml IVFLUSH QSHIFT [facility] Last Admin: 11/22/21 09:13 Dose: 3 ml Home Medications Medication Instructions Recorded Confirmed Last Taken Type acetaminophen 325 mg tablet 650 mg PO Q4H PRN Pain (Scale 11/19/21 11/19/21 Unknown History Score 1-3) apixaban 2.5 mg tablet 2.5 mg PO BID 11/19/21 11/19/21 Unknown History ascorbic acid (vitamin C) 500 mg 500 mg PO TID 11/19/21 11/19/21 Unknown History tablet aspirin 81 mg tablet,delayed 81 mg PO DAILY 11/19/21 11/19/21 Unknown History release bicalutamide 50 mg tablet 50 mg PO DAILY 11/19/21 11/19/21 Unknown History carbamazepine 200 mg tablet 200 mg PO BID 11/19/21 11/19/21 Unknown History carbidopa ER 25 mg-levodopa 100 mg 1 tab PO TID 11/19/21 11/19/21 Unknown History tablet,extended release carvedilol 6.25 mg tablet 6.25 mg PO BID 11/19/21 11/19/21 Unknown History cholecalciferol (vitamin D3) 125 125 mcg PO DAILY 11/19/21 11/19/21 Unknown History mcg (5,000 unit) tablet clonidine HCl 0.1 mg tablet 0.1 mg PO BID 11/19/21 11/19/21 Unknown History clopidogrel 75 mg tablet 75 mg PO DAILY 11/19/21 11/19/21 Unknown History cyanocobalamin (vitamin B-12) 1,000 mcg PO DAILY 11/19/21 11/19/21 Unknown History 1,000 mcg tablet docusate sodium 100 mg tablet 100 mg PO BID 11/19/21 11/19/21 Unknown History donepezil 10 mg tablet 10 mg PO BEDTIME 11/19/21 11/19/21 Unknown History ferrous sulfate 325 mg (65 mg 325 mg PO TID 11/19/21 11/19/21 Unknown History iron) tablet gabapentin 300 mg capsule 300 mg PO TID 11/19/21 11/19/21 Unknown History magnesium hydroxide 400 mg/5 mL 30 ml PO BEDTIME PRN Constipation 11/19/21 11/19/21 Unknown History oral suspension (Milk of Magnesia) methenamine hippurate 1 gram tablet 1 g PO BID 11/19/21 11/19/21 Unknown History omeprazole 20 mg tablet,delayed 20 mg PO DAILY@0630 11/19/21 11/19/21 Unknown History release paroxetine HCl 40 mg tablet 40 mg PO DAILY 11/19/21 11/19/21 Unknown History polyethylene glycol 3350 17 gram 17 g PO BID PRN Constipation 11/19/21 11/19/21 Unknown History oral powder packet (Miralax) polyethylene glycol 3350 17 gram 17 g PO DAILY 11/19/21 11/19/21 Unknown History oral powder packet (Miralax) rosuvastatin 10 mg tablet 10 mg PO DAILY 11/19/21 11/19/21 Unknown History Physical Exam Vital Signs: Vital Signs: Last Vital Signs Temp 97.1 F 11/22/21 08:57 Pulse 67 11/22/21 08:57 Resp 16 11/22/21 08:57 BP 165/85 H 11/22/21 08:57 Pulse Ox 99 11/22/21 08:57 O2 Del Method 11/22/21 08:57 O2 Flow Rate 2 11/22/21 08:57 Oxygen Flow Rate 2 11/19/21 00:03 BMI result Body Mass Index 30.9 Const: General: cooperative HEENT: Head: Yes normal to inspection Mouth: Normal oral and palatal mucosa present Resp: Effort & Inspection: normal respiratory effort Cardio: Rate: regular rate Rhythm: regular rhythm GI: Palpation (GI): Soft to palpation and nontender Psych: Other: confused Results Labs CBC & Chem 7: 11/22/21 05:49 11/22/21 05:49 Labs: Short CBC 11/22/21 Range/Units 05:49 WBC 10.5 (4.8-10.8) X10*3/uL Hgb 7.7 L (14.0-18.0) g/dl Hct 26.2 L (42.0-52.0) % Plt Count 280 (160-400) X10*3/uL BMP 11/22/21 05:49 Sodium 140 Potassium 3.8 Chloride 108 Carbon Dioxide 26 BUN 30 H Creatinine 1.52 H Calcium 7.8 L Microbiology Microbiology Results: Microbiology 11/20/21 15:04 Blood - Venous Blood Culture - Preliminary No growth after 24 hours. 11/20/21 15:04 Blood - Venous Blood Culture - Preliminary No growth after 24 hours. 11/19/21 00:51 Blood - Venous Blood Culture - Final Escherichia coli Corynebacterium species 11/19/21 Unknown Urine Catheterized - Merino Catheter Urine Culture - Final Escherichia coli 11/19/21 00:51 Blood - Venous Blood Culture - Final Escherichia coli Assessment and Plan (1) Urinary retention with incomplete bladder emptying: Status: Acute He has E coli bacteremia due to bladder failing to empty,urinary hesitancy Urine sensitive to cephalosporin (2) Gram-negative bacteremia: Status: Acute (3) Hematuria: Status: Acute (4) Toxic metabolic encephalopathy: Status: Acute Plan Po Ceftin for ten to fourteen days.
[2021-11-22 16:29] VITALS: BP 183/89; PULSE 69; RESP 16; TEMP 36.1; O2SAT 90
--- NOTE | 2021-11-23 15:19 | MHC.CM.PN ---
Received notification from Summer at [facility] that patient's wanted referral to [facility]. Referral made via [facility]. Continue to monitor for d/c needs.
== END 2021-11-22 17:15 | disposition home health service (06) | DRG 592 ==
LOC: HO.ED 11-19 02:28 → HO.EDOVER 11-19 10:55
PROVIDERS: Admitting Provider Student in an Organized Health Care Education/Training Program; Emergency Provider Emergency Medicine; PCP Family Medicine; Visit Provider Student in an Organized Health Care Education/Training Program
DX: L89.612 Pressure ulcer of right heel, stage 2 (principal); G92.9 Unspecified toxic encephalopathy; R78.81 Bacteremia; N39.0 Urinary tract infection, site not specified; E78.5 Hyperlipidemia, unspecified; D75.89 Other specified diseases of blood and blood-forming organs; N18.30 Chronic kidney disease, stage 3 unspecified; D63.1 Anemia in chronic kidney disease; T83.028A Displacement of other urinary catheter, initial encounter; R31.9 Hematuria, unspecified; G20 Parkinson's disease; R33.9 Retention of urine, unspecified; B96.20 Unspecified Escherichia coli [E. coli] as the cause of diseases classified elsewhere; Z20.822 Contact with and (suspected) exposure to COVID-19; Z86.711 Personal history of pulmonary embolism; Z88.2 Allergy status to sulfonamides; Z79.01 Long term (current) use of anticoagulants; Z79.82 Long term (current) use of aspirin; Z79.02 Long term (current) use of antithrombotics/antiplatelets; Z79.899 Other long term (current) drug therapy
CPT/HCPCS: 36415; 70450; 71250; 72125; 73502; 73630; 80048; 80076; 80202; 81001; 82140; 82550; 82803; 82947; 83605; 83690; 83735; 84484; 85025; 85027; 85610; 85652; 85730; 86140; 87040; 87077; 87086; 87088; 87186; 87205; 87635; 93005; 96365; 97162; 99285; J0690; J2543; J3370